=== PATIENT | female | born 1985 | race Caucasian/White ===

== ENCOUNTER → 2016-09-27 | Outpatient (CLI) | payer BC ==
[~2016-09-27] MED LIST: IBP600T1 PO; OXYC-12 PO; PREN1TAB39 PO
--- NOTE | 2016-09-27 13:12 | Diagnostic Imaging Report ---
CLINICAL INDICATION: Patient with thyroiditis. COMPARISONS: Thyroid ultrasound dated 11/09/2015. FINDINGS: THYROID NODULES: There is a 7 mm x 6 mm x 9 mm isoechoic nodule with peripheral hypoechoic rim and hyperechoic rim involving the midportion of the right thyroid gland. This nodule previously measured 9 mm x 7 mm x 6 mm and demonstrated less of a hyperechoic rim. This may represent progression of peripheral calcification. There is a 3 mm x 3 mm x 2 mm isoechoic/hypoechoic nodule within the midportion of the left kidney which is stable compared to the prior study. THYROID GLAND: Besides the thyroid nodules, the thyroid gland has normal size, shape and echogenicity. The right lobe measures 5.1 cm x 1.4 cm x 1.5 cm and the left lobe measures 4.6 cm x 1.3 cm x 1.6 cm in their three dimensions. ISTHMUS: The isthmus is unremarkable and measures 3 mm in thickness. IMPRESSION: 1: There is interval progression of increased hyperechoic border involving the right thyroid gland nodule suspected to represent progression of peripheral eggshell calcification. Otherwise this nodule is stable in size. 2: Stable 3 mm nodule in the left thyroid gland. 3: Otherwise unremarkable thyroid ultrasound exam. Dictated by: Dictated on workstation # [id number]
--- OUTSIDE RECORDS SUMMARY | 2016-09-27 13:12 | XMS REPORT | Clinical Summary ---
Author Author User, [employer] Casie Harman DO, FACP Address Unknown Phone Allergies, Adverse Reactions, Alerts Allergy Name Reaction Description Start Date Severity Status Provider MINOCYCLINE HCL rash Critical Active Casie Harman MINOCYCLINE rash Critical No Longer Active Casie Harman Conditions or Problems Problem Name Problem Code Onset Date Status Entry Date Provider Comment Standard Description Annotate LYMPHEDEMA NEC 457.1 Resolved Casie Harman Other lymphedema SINUS CONGESTION 478.1 Resolved Casie Harman Other diseases of nasal cavity and sinuses AMENORRHEA 626.0 Resolved Casie Harman Absence of menstruation INSOMNIA 780.52 Active Casie Harman Insomnia, unspecified ALLERGIC RHINITIS, SEASONAL 477.0 Resolved Casie Harman Allergic rhinitis due to pollen ACNE VULGARIS, FACIAL 706.1 Active Casie Harman Other acne ANKLE PAIN, LEFT 719.47 Active Casie Harman Pain in joint involving ankle and foot URI 465.9 Inactive Casie Harman Acute upper respiratory infections of unspecified site SINUSITIS, SPHENOIDAL, ACUTE 461.3 Inactive Casie Harman Acute sphenoidal sinusitis WEIGHT GAIN, ABNORMAL 783.1 Active Casie Harman Abnormal weight gain Medication List Medication Instructions Start Date Stop Date Generic Name NDC Status Provider Patient Instruction PHENTERMINE HCL 15 MG CAPS 1 PO BID PHENTERMINE HCL 22514856659 Active Casie Meenakshi Harman PHENTERMINE HCL 15 MG CAPS 1 PO BID PHENTERMINE HCL 65922774799 No Longer Active Casieremy Harman ALPRAZOLAM 0.5 MG TABS 1 PO Q6hrs prn ALPRAZOLAM 94228578330 No Longer Active Casie Meenakshi Harman WELLBUTRIN SR 100 MG [id number] 1 PO BID BUPROPION HCL 89519800647 No Longer Active Casie Meenakshi Harman SPIRONOLACTONE 50 MG TABS 2 PO daily SPIRONOLACTONE 42797868597 Active Casie Meenakshi Harman AUGMENTIN 500-125 MG TAB 1 PO BID AMOXICILLIN-POT CLAVULANATE 53510932331 No Longer Active Casie POLANCO'S NASAL SPRAY (DEXAMETHASONE, GENTAMICIN, SALINE) 2 puffs each nostril TID for [address] POLANCO'S NASAL SPRAY ( DEXAMETHASONE, GENTAMICIN, SALINE) No Longer Active Casie Harman FLONASE 50 MCG/DOSE INHALANT 2 puffs each nostril daily FLONASE 50 MCG/DOSE INHALANT No Longer Active Casie Harman GNP MELATONIN 3 MG TABS 1 PO QHS MELATONIN 64442797687 No Longer Active Casie Meenakshi Harman BACTRIM DS 800-160 MG TAB 1 PO daily TRIMETHOPRIM-SULFAMETHOXAZOLE 84302334919 Active Casie Meenakshi Harman SOLODYN [id number] 1 PO QHS MINOCYCLINE HCL [id number] 00935358516 No Longer Active Casieremy Harman EFFEXOR XR 37.5 MG [id number]-ZLO 1 PO daily VENLAFAXINE HCL 77778793300 No Longer Active Elizabeth Bautista CELEXA 20 MG TABS 1 PO daily CITALOPRAM HYDROBROMIDE 86607417448 No Longer Active Casie Harman PREDNISONE 20 MG TAB 2 pills at once for 2 days then 1 pill daily for 2 days PREDNISONE 00849825551 No Longer Active Casie Harman ACZONE 5 % GEL apply to affected areas [place] 11359073734 Active Casie Meenakshi Harman CHER 180 MG TABS 1 PO QD FEXOFENADINE HCL 62884279831 No Longer Active Casieremy Harman FLONASE 50 MCG/DOSE INHALANT 2 puffs each nostril daily FLONASE 50 MCG/DOSE INHALANT 78730086386 No Longer Active Casie Harman HYDROCHLOROTHIAZIDE 25 MG TAB 1 PO QD HYDROCHLOROTHIAZIDE 14553163902 No Longer Active Casie Harman Vital Signs Date Name Value Unit Range Description blood pressure, diastolic - 8462-4 84 mm[Hg] BP [place] blood pressure, systolic - 8480-6 122 mm[Hg] BP sys pulse rate E&M - 8867-4 100 /min Heart rate respiratory rate E&M - 9279-1 14 /min Resp rate temperature E&M 98.6 [degF] Body temperature weight E&M - 3141-9 198 [lb_av] Weight Measured blood pressure, diastolic - 8462-4 72 mm[Hg] BP [place] blood pressure, systolic - 8480-6 113 mm[Hg] BP sys pulse rate E&M - 8867-4 80 /min Heart rate respiratory rate E&M - 9279-1 14 /min Resp rate temperature E&M 98.6 [degF] Body temperature weight E&M - 3141-9 235 [lb_av] Weight Measured blood pressure, diastolic - 8462-4 75 mm[Hg] BP [place] blood pressure, systolic - 8480-6 130 mm[Hg] BP sys pulse rate E&M - 8867-4 80 /min Heart rate respiratory rate E&M - 9279-1 14 /min Resp rate temperature E&M 98.6 [degF] Body temperature weight E&M - 3141-9 196 [lb_av] Weight Measured blood pressure, diastolic - 8462-4 84 mm[Hg] BP [place] blood pressure, systolic - 8480-6 136 mm[Hg] BP sys pulse rate E&M - 8867-4 80 /min Heart rate respiratory rate E&M - 9279-1 12 /min Resp rate weight E&M - 3141-9 196 [lb_av] Weight Measured Diagnostic Results Date Name Value Unit Range Description Clinical Lists Update: CBC,CMP,FLP,TSH,Free T4,HgA1c,Ferritin - Chemistry Estimated Glomerular Filtration Rate (calc) 56 mL/min/1.73m2 glucose, plasma fasting 91 mg/dL albumin, serum 4.2 g/dL alkaline phosphatase, serum 54 U/L urea nitrogen, blood 13 mg/dL calcium, serum 9.1 mg/dL chloride, serum 105 mmol/L carbon dioxide, venous blood 25.0 mmol/L anion gap, serum 10 sodium, serum 136 mmol/L bilirubin, serum, total 0.5 mg/dL alanine aminotransferase (SGPT), serum 14 U/L aspartate aminotransferase (SGOT), serum 17 U/L protein, total, serum 6.3 g/dL potassium, serum 4.1 mmol/L thyroid stimulating hormone, serum 2.03 u[iU]/mL hemoglobin A1C, blood, as % of total hemoglobin 5.0 % thyroxine, serum, free 0.74 ng/dL ferritin, serum 18.4 ng/mL creatinine, serum 1.2 mg/dL Clinical Lists Update: CBC,CMP,FLP,TSH,Free T4,HgA1c,Ferritin - Hematology hemoglobin, blood 12.8 g/dL platelet count 248 10*3/mm3 erythrocyte (RBC) count 4.06 10*6/mm3 leukocyte count, blood 5.2 10*3/mm3 mean corpuscular volume, RBC 97 fL red blood cell distribution width 13.3 % hematocrit, blood 40 % Encounters Code Encounter Date Provider Facility CPT-98472 Ofc Vst, Est Level III 15:56:02 CDT Casieremy Harman DO, FACP CPT-78435 Ofc Vst, Est Level III 17:13:33 CDT Casieremy Harman DO, FACP CPT-62932 Ofc Vst, Est Level IV 17:39:31 CDT Casieremy Harman DO, FACP CPT-92374 Ofc Vst, Est Level IV 17:05:44 CDT Casie Harman DO, FACP CPT-40677 Ofc Vst, Est Level III 19:47:32 [employer] Casie Harman DO, FACP CPT-44593 Ofc Vst, Est Level III 13:04:49 [employer] Casie Harman DO, FACP CPT-54993 Ofc Vst, Est Level III 14:19:09 CDT Casie Harman, DO, FACP CPT-73303 Ofc Vst, Est Level III 14:34:54 CDT Casie Harman DO, FACP CPT-54418 Ofc Vst, Est Level III 13:14:41 [employer]PER[employer] Casie Harman DO, FACP CPT-76318 Ofc Vst, Est Level III 11:00:00 CDT Casie Harman DO, FACP CPT-57818 Ofc Vst, Est Level III 11:47:56 CDT Casieremy Harman DO, FACP CPT-96428 Ofc Vst, Est Level II 13:26:49 CDT Casieremy Harman DO, FACP CPT-23702 Ofc Vst, New Level III 14:53:05 CDT Casie Harman DO, FACP CPT-15800 Ofc Vst, New Level III 13:13:20 [employer]PER[employer] Casie Harman DO, FACP
== END ==
LOC: RAD 08:05
PROVIDERS: ATTEND Internal Medicine
DX: E06.9 Thyroiditis, unspecified (principal)
CPT/HCPCS: 76536

== ENCOUNTER → 2016-10-18 | Outpatient (CLI) | payer BC ==
--- NOTE | 2016-10-19 14:48 | Diagnostic Imaging Report ---
I123 THYROID UPTAKE SCAN Technique: Multi-projectional scintigraphic imaging of the thyroid was performed after the oral administration of 191 ?Ci of I-123. A 4 hour and 24-hour thyroid uptake was performed. Indication: Thyroid nodule. Comparison: Thyroid ultrasound of 09/27/2016. Findings: There is homogeneous uptake of radiopharmaceutical throughout the thyroid. No photopenic or foci of increased radiopharmaceutical activity. Specifically, no evidence of hyperfunctioning adenoma. No findings of ectopic thyroid tissue. The 4-hour thyroid uptake is 16.2% in the 24-hour uptake is 42.4%, both of which are slightly elevated. Impression: 1. No evidence of hyperfunctioning adenoma. 2. Mildly elevated thyroid uptake at 4 hours and 24 hours. This can be seen with hyperthyroidism, and correlation with TSH levels is advised. Dictated by: Dictated on workstation # [id number]
== END ==
LOC: CARD 11:55
PROVIDERS: ATTEND Internal Medicine
DX: E04.1 Nontoxic single thyroid nodule (principal)
CPT/HCPCS: 78014

== ENCOUNTER → 2016-11-18 | Outpatient (CLI) | payer BC ==
[~2016-11-18] VITALS: Ht 177.8 cm; Wt 81.6 kg
[2016-11-18 10:38] VITALS: BP 124/68
[2016-11-18 10:52] VITALS: BP 124/68
--- NOTE | 2016-11-18 11:23 | Progress Note-Pre Operative ---
Pre-Operative Progress Note H&P Reviewed The H&P was reviewed, patient examined and no changes noted. Date H&P Reviewed: Nov 18, 2016 Time H&P Reviewed: 10:20 Pre-Operative Diagnosis: Right Thyroid Nodule NIKOLAS POLANCO MD Nov 18, 2016 11:22 am
--- NOTE | 2016-11-18 11:24 | Progress Note-Post Operative ---
Post-Operative Progess Note Surgeon (s)/[employer] (s) Surgeon NIKOLAS POLANCO MD [employer]: n/a Pre-Operative Diagnosis Right Thyroid Nodule Post-Operative Diagnosis n/a Post-Op Procedure Note Date of Procedure: Nov 18, 2016 Name of Procedure Performed: US Guided FNA of Right Thyriod Nodule Description of the Procedure: n/a Findings of the Procedure n/a Anesthesia Type local Estimated blood loss (mL): minimal Specimen(s) collected/removed slides and cytology to pathology NIKOLAS POLANCO MD Nov 18, 2016 11:23 am
--- NOTE | 2016-11-21 08:07 | Diagnostic Imaging Report ---
EXAMINATION: Dedicated thyroid ultrasound performed with ultrasound guidance provided for FNA performed by Dr. Kowalski. Indication: Thyroid nodule FINDINGS: Ultrasound images demonstrate a solid right thyroid nodule. IMPRESSION: Ultrasound guidance provided for right thyroid nodule FNA. Dictated by: Dictated on workstation # [id number]
== END ==
LOC: RAD 10:12
PROVIDERS: ATTEND Otolaryngology Otolaryngology/Facial Plastic Surgery
DX: E04.1 Nontoxic single thyroid nodule (principal)
CPT/HCPCS: 76942; 88305

== ENCOUNTER → 2018-02-16 | Outpatient (CLI) | payer BC ==
--- NOTE | 2018-02-16 09:02 | Diagnostic Imaging Report ---
PROCEDURE: US Thyroid. TECHNIQUE: Multiple real-time grayscale images were obtained of the thyroid in various projections. INDICATION: Thyroid nodules, followup. Comparison is made to prior thyroid ultrasound from 09/27/2016. The right lobe of the thyroid measures 5.0 x 1.4 x 1.5 cm and the left lobe measures 4.6 x 1.3 x 1.6 cm. Hypoechoic nodule with peripheral hyperechogenicity in the right lobe is again noted measuring 7 mm x 6 cm x 5 mm. Tiny 3 mm nodule left lobe is also seen and stable. No dominant mass is detected. IMPRESSION: Stable thyroid ultrasound and thyroid nodules when compared with prior exam from 09/27/2016. Dictated by: Dictated on workstation # [id number]
== END ==
LOC: RAD 08:01
PROVIDERS: ATTEND Otolaryngology Otolaryngology/Facial Plastic Surgery
DX: E04.2 Nontoxic multinodular goiter (principal)
CPT/HCPCS: 76536

== ENCOUNTER 2021-09-19 13:10 | Inpatient (IN) | payer BC ==
[~2021-09-19] VITALS: Ht 170.2 cm; Wt 130.5 kg
[2021-09-19 13:57] LABS: BASOPHILS # (AUTO) 0.1 10^3/uL (0.0-0.1); BASOPHILS % (AUTO) 1 % (0-10); EOSINOPHILS # (AUTO) 0.1 10^3/uL (0.0-0.3); EOSINOPHILS % (AUTO) 1 % (0-10); HEMATOCRIT 44 % (35-52); HEMOGLOBIN 14.5 g/dL (11.5-16.0); LYMPHOCYTES # (AUTO) 2.5 10^3/uL (1.0-4.0); LYMPHOCYTES % (AUTO) 22 % (12-44); MEAN CORPUSCULAR HEMOGLOBIN 31 pg (25-34); MEAN CORPUSCULAR HGB CONC 33 g/dL (32-36); MEAN CORPUSCULAR VOLUME 94 fL (80-99); MEAN PLATELET VOLUME 10.3 fL (9.0-12.2); MONOCYTES # (AUTO) 0.6 10^3/uL (0.0-1.0); MONOCYTES % (AUTO) 6 % (0-12); NEUTROPHILS # (AUTO) 7.8 10^3/uL (1.8-7.8); NEUTROPHILS % (AUTO) 70 % (42-75); PLATELET COUNT 358 10^3/uL (130-400); WHITE BLOOD COUNT 11.1 10^3/uL (4.3-11.0)
[2021-09-19 14:05] LABS: ALBUMIN 4.1 GM/DL (3.2-4.5)
[2021-09-19 14:06] LABS: POTASSIUM 4.1 MMOL/L (3.6-5.0)
[2021-09-19 14:07] LABS: CALCIUM 9.6 MG/DL (8.5-10.1)
[2021-09-19 14:08] LABS: TOTAL PROTEIN 7.6 GM/DL (6.4-8.2)
[2021-09-19 14:10] LABS: BILIRUBIN,TOTAL 0.4 MG/DL (0.1-1.0)
[2021-09-19 14:12] LABS: CREATININE SERUM 0.91 MG/DL (0.60-1.30)
[2021-09-19] MEDS ORDERED: IOHEXOL 350 MG/ML 100 ML (OMNIPAQUE 350) VIAL IV ONE (14:45)
[2021-09-19] MEDS ORDERED: NS 100 ML (IVPB) BAG IV ONE (14:45)
[2021-09-19] MEDS ORDERED: HOLD METFORMIN - RECEIVED CONTRAST 20 ML VIAL IV SCH (14:45)
[2021-09-19] MEDS ORDERED: HEParin DRIP 25000 UNIT/500ML 500 ML IV ONE (16:00)
[2021-09-19] MEDS ORDERED: HEParin 1000 UNIT/ML (10ML VIAL) FOR BOLUS IV ONE (16:00)
--- NOTE | 2021-09-19 16:21 | Diagnostic Imaging Report ---
PROCEDURE: CT angiography of the chest with contrast. TECHNIQUE: Multiple contiguous axial images were obtained through the chest after uneventful bolus administration of intravenous contrast. 3D reconstructed CTA MIP acquisitions were also performed. Auto Exposure Controls were utilized during the CT exam to meet ALARA standards for radiation dose reduction. INDICATION: Trouble breathing, dyspnea COMPARISON: None available FINDINGS: No significant adenopathy within the chest. No aneurysmal dilatation of the thoracic aorta. The heart is within normal limits in size. No significant pericardial effusion. The right ventricle to left ventricle ratio is greater than 1 and there is slight flattening of the interventricular septum. No pleural effusion. No pneumothorax. Minimal groundglass and reticular opacities within the peripheral right lower lobe inferiorly. The lungs otherwise appear clear. A large saddle pulmonary embolus is identified with additional emboli identified within the bilateral pulmonary arteries. Filling defects are identified within segmental and subsegmental pulmonary arteries of all 5 lobes bilaterally. The minimally visualized upper abdomen is unremarkable. No acute osseous abnormality. IMPRESSION: Extensive bilateral pulmonary emboli throughout all 5 lobes including large saddle pulmonary embolus extending to the bilateral pulmonary arteries. This is associated with findings concerning for developing right heart strain. Minimal groundglass opacities within the right lower lobe, which may simply relate to atelectasis, though minimal developing pulmonary infarction not excluded. Findings discussed with Avelina Bowen in the Emergency Department at 1600 on 09/19/2021. Dictated by: Dictated on workstation # [id number]
[2021-09-19 17:00] LABS: PROTHROMBIN TIME PATIENT 13.7 SEC (12.2-14.7)
--- NOTE | 2021-09-19 17:44 | ED General ---
General Chief Complaint: Respiratory Problems Stated Complaint: POSSIBLE BLOOD CLOT, SOB, LOW O2, HIGH HEART RATE Nursing Triage Note: PT AMB TO RM 10 W PERSONAL CRUTCHES. PT REPORTS SHE HAD RIGHT ANKLE SURGERY ON MONDAY FOR BROKEN ANKLE (1 PLATE 5 SCREWS). PT ADVISED TO GO TO ED PER [facility] D/T POST OP BLOOD CLOT CONCERN. PT C/O SOA SX MONDAY, DENIES PAIN. A&OX4. Source of Information: Patient Exam Limitations: No Limitations History of Present Illness Date Seen by Provider: Sep 19, 2021 Time Seen by Provider: 13:22 Initial Comments This 36-year-old young lady presents to the emergency room as a referral from the [facility] walk-in clinic where she was found to have tachycardia up to 160 that appeared sinus as well as shortness of breath and oxygen saturations around 92% on room air. She was suffering probe significant dyspnea on exertion. She is recovering from recent ankle surgery and plating to treat ankle fracture on the right. Her surgeon is Dr. Topete. Surgery was on September 14. She started noticing shortness of breath with activities of daily living on September 16. She does not smoke. She denies cough or fever. She does not take any hormone therapies. She denies as she has an IUD. Oxygen saturation is 90% on 1 L nasal cannula during assessment. She describes having some proximal calf pain the day after surgery. Allergies and Home Medications Allergies Coded Allergies: No Known Drug Allergies (Verified Allergy, Unknown, 07/14/08) Patient Home Medication List Home Medication List Reviewed: Yes Ibuprofen (Motrin) 600 Mg Tab, 600 MG PO Q6HR PRN, (Reported) Entered as Reported by: SALEEM KWAN on 05/06/10 1221 Oxycodone Hcl/Acetaminophen (Percocet 5-325 Mg Tablet) 1 Each Tablet, 1-2 EACH PO Q4-6 HOURS PRN, (Reported) Entered as Reported by: SALEEM KWAN on 05/06/10 1221 Vits W-Ca,Fe,Fa(<1MG) () 1 Each Tablet, 1 EACH PO DAILY, (Reported) Entered as Reported by: SALEEM KWAN on 05/06/10 1224 Review of Systems Review of Systems Constitutional: no symptoms reported EENTM: no symptoms reported Respiratory: see HPI Cardiovascular: no symptoms reported Gastrointestinal: no symptoms reported Genitourinary: no symptoms reported Musculoskeletal: see HPI Skin: no symptoms reported Psychiatric/Neurological: No Symptoms Reported Hematologic/Lymphatic: No Symptoms Reported Past Ghgywfk-Szzibb-Jescmo Hx Patient Social History Tobacco Use?: No Use of E-Cig and/or Vaping dev: No Substance use?: No Alcohol Use?: No Immunizations Up To Date Influenza Vaccine Up-to-Date: Yes; Up-to-Date First/Initial COVID19 Vaccinat: 2020 Second COVID19 Vaccination Kg: 2020 Third COVID19 Vaccination Date: 2020 COVID19 Vaccine [employer]: [employer] Past Medical History Surgery/Hospitalization HX: HX RIGHT ANKLE SURGERY X5 SCREWS, 1 PLATE Surgeries: Yes Orthopedic (Knee, ankle) Respiratory: No Cardiac: No Neurological: No Reproductive Disorders: No Genitourinary: No Gastrointestinal: No Musculoskeletal: Yes (Right ankle fracture with surgery and plating) Endocrine: No HEENT: No Cancer: No Psychosocial: No Physical Exam Vital Signs Vital Signs - First Documented 09/19/21 13:28 Temp 36.2 Pulse 156 Resp 26 B/P (MAP) 142/98 (113) Pulse Ox 97 O2 Delivery Nasal Cannula O2 Flow Rate 1.00 Capillary Refill : Less Than 3 Seconds Height, Weight, BMI Height: 5'10.00" Weight: 180lbs. 0.0oz. 81.508247zx; 45.00 BMI Method: General Appearance: WD/WN, Mild Distress (Dyspnea on exertion), Obese HEENT: PERRL/EOMI, Normal ENT Inspection Neck: Normal Inspection; No JVD Respiratory: Lungs Clear, Normal Breath Sounds, No Accessory Muscle Use, No Respiratory Distress Cardiovascular: No Edema, No Murmur, Tachycardia (Regular) Extremity: No Pedal Edema, Other (Right foot remains in boot) Neurologic/Psychiatric: Alert, Oriented x3, Normal Mood/Affect Skin: Normal Color, Warm/Dry Progress/Results/Core Measures Suspected Sepsis SIRS Temperature: Pulse: 156 Respiratory Rate: 26 Laboratory Tests 09/19/21 13:40: White Blood Count 11.1H Blood Pressure 142 /98 Mean: 113 Laboratory Tests 09/19/21 13:40: Creatinine 0.91, INR Comment 1.0, Platelet Count 358, Total Bilirubin 0.4 Results/Orders Lab Results Laboratory Tests Test 09/19/21 13:40 09/19/21 13:48 Range/Units White Blood Count 11.1 H 4.3-11.0 10^3/uL Red Blood Count 4.64 3.80-5.11 10^6/uL Hemoglobin 14.5 11.5-16.0 g/dL Hematocrit 44 35-52 % Mean Corpuscular Volume 94 80-99 fL Mean Corpuscular Hemoglobin 31 25-34 pg Mean Corpuscular Hemoglobin Concent 33 32-36 g/dL Red Cell Distribution Width 12.5 10.0-14.5 % Platelet Count 358 130-400 10^3/uL Mean Platelet Volume 10.3 9.0-12.2 fL Immature Granulocyte % (Auto) 1 % Neutrophils (%) (Auto) 70 42-75 % Lymphocytes (%) (Auto) 22 12-44 % Monocytes (%) (Auto) 6 0-12 % Eosinophils (%) (Auto) 1 0-10 % Basophils (%) (Auto) 1 0-10 % Neutrophils # (Auto) 7.8 1.8-7.8 10^3/uL Lymphocytes # (Auto) 2.5 1.0-4.0 10^3/uL Monocytes # (Auto) 0.6 0.0-1.0 10^3/uL Eosinophils # (Auto) 0.1 0.0-0.3 10^3/uL Basophils # (Auto) 0.1 0.0-0.1 10^3/uL Immature Granulocyte # (Auto) 0.1 0.0-0.1 10^3/uL Prothrombin Time 13.7 12.2-14.7 SEC INR Comment 1.0 0.8-1.4 Activated Partial Thromboplast Time 36 H 24-35 SEC Sodium Level 137 135-145 MMOL/L Potassium Level 4.1 3.6-5.0 MMOL/L Chloride Level 104 98-107 MMOL/L Carbon Dioxide Level 19 L 21-32 MMOL/L Anion Gap 14 5-14 MMOL/L Blood Urea Nitrogen 11 7-18 MG/DL Creatinine 0.91 0.60-1.30 MG/DL Estimat Glomerular Filtration Rate 83 BUN/Creatinine Ratio 12 Glucose Level 115 H 70-105 MG/DL Calcium Level 9.6 8.5-10.1 MG/DL Corrected Calcium 9.5 8.5-10.1 MG/DL Total Bilirubin 0.4 0.1-1.0 MG/DL Aspartate Amino Transf (AST/SGOT) 36 H 5-34 U/L Alanine Aminotransferase (ALT/SGPT) 45 0-55 U/L Alkaline Phosphatase 83 40-136 U/L C-Reactive Protein High Sensitivity 3.51 H 0.00-0.50 MG/DL Total Protein 7.6 6.4-8.2 GM/DL Albumin 4.1 3.2-4.5 GM/DL Serum Test, Qualitative NEGATIVE NEGATIVE Influenza Type A (RT-PCR) Not Detected Not Detecte Influenza Type B (RT-PCR) Not Detected Not Detecte SARS-CoV-2 RNA (RT-PCR) Not Detected Not Detecte My Orders Orders - SHABBIR JENKINS MD Cbc With Automated Diff (09/19/21 13:22) Comprehensive Metabolic Panel (09/19/21 13:22) Hs C Reactive Protein (09/19/21 13:22) Hcg,Qualitative Serum (09/19/21 13:22) Ed Iv/Invasive Line Start (09/19/21 13:22) Covid 19 Inhouse Test (09/19/21 13:43) Influenza A And B By Pcr (09/19/21 13:43) Ct Angio Chest W (09/19/21 14:35) Iohexol Injection (Omnipaque 350 Mg/Ml 1 (09/19/21 14:45) Received Contrast (Hold Metformin- Contr (09/19/21 14:45) Ns (Ivpb) (Sodium Chloride 0.9% Ivpb Bag (09/19/21 14:45) Heparin Drip 25453 Unit/500ml (Heparin (09/19/21 16:00) Heparin (Bolus Per Protocol) (Heparin (B (09/19/21 16:00) Echo W Doppler/Color Flow (09/19/21 15:49) Protime With Inr (09/19/21 16:49) Partial Thromboplastin Time (09/19/21 16:49) Ed Admission (Communication) (09/19/21 17:37) Medications Given in ED Current Medications Medications Dose Ordered Sig/Renee Route Start Time Stop Time Status Last Admin Dose Admin Heparin Sodium (Porcine) HEPARIN FULL PROTOC... ONCE ONCE IV 09/19/21 16:00 09/19/21 16:01 DC 09/19/21 16:47 5,000 UNIT Heparin Sodium/ Dextrose 500 ml @ 0 mls/hr Q0M ONCE IV 09/19/21 16:00 09/19/21 16:01 DC 09/19/21 16:54 24 MLS/HR Iohexol 100 ml ONCE ONCE IV 09/19/21 14:45 09/19/21 14:46 DC 09/19/21 15:35 88 ML Sodium Chloride 100 ml ONCE ONCE IV 09/19/21 14:45 09/19/21 14:46 DC 09/19/21 15:35 80 ML Vital Signs/I&O 09/19/21 13:28 Temp 36.2 Pulse 156 Resp 26 B/P (MAP) 142/98 (113) Pulse Ox 97 O2 Delivery Nasal Cannula O2 Flow Rate 1.00 Capillary Refill : Less Than 3 Seconds Blood Pressure Mean: 113 Progress Note : Progress Note Patient was stable on low-flow nasal cannula. CT angiogram was obtained after reviewing labs and revealed a large saddle pulmonary embolus with right heart strain. I discussed the case with Dr. Beck with eICU at 1548. Because patient is hemodynamically stable and requiring only low-flow oxygen, thrombolytics or endovascular interventions were not recommended. We started her on a full heparin drip protocol with bolus. Echocardiogram was obtained and reviewed by Dr. Hector. There were no additional concerns based on the echocardiogram. Pulmonary artery pressure was 40. He agrees with admission to the ICU and heparin drip. Patient wishes to be full CODE STATUS. Dr. Beck was updated after the echo. Admission was discussed with Dr. Kowalski who provided admission orders. Diagnostic Imaging Diagonstic Imaging: CT Plain Films/CT/US/NM/MRI: chest Comments CT angiogram chest viewed by me and report reviewed. See report below: NAME: WALLACE RAMON MED REC#: [id number] PT STATUS: REG ER : 1985 PHYSICIAN: SHABBIR JENKINS MD ADMIT DATE: 09/19/21/ER Draft Date of Exam:09/19/21 CT ANGIO CHEST W PROCEDURE: CT angiography of the chest with contrast. TECHNIQUE: Multiple contiguous axial images were obtained through the chest after uneventful bolus administration of intravenous contrast. 3D reconstructed CTA MIP acquisitions were also performed. Auto Exposure Controls were utilized during the CT exam to meet ALARA standards for radiation dose reduction. INDICATION: Trouble breathing, dyspnea COMPARISON: None available FINDINGS: No significant adenopathy within the chest. No aneurysmal dilatation of the thoracic aorta. The heart is within normal limits in size. No significant pericardial effusion. The right ventricle to left ventricle ratio is greater than 1 and there is slight flattening of the interventricular septum. No pleural effusion. No pneumothorax. Minimal groundglass and reticular opacities within the peripheral right lower lobe inferiorly. The lungs otherwise appear clear. A large saddle pulmonary embolus is identified with additional emboli identified within the bilateral pulmonary arteries. Filling defects are identified within segmental and subsegmental pulmonary arteries of all 5 lobes bilaterally. The minimally visualized upper abdomen is unremarkable. No acute osseous abnormality. IMPRESSION: Extensive bilateral pulmonary emboli throughout all 5 lobes including large saddle pulmonary embolus extending to the bilateral pulmonary arteries. This is associated with findings concerning for developing right heart strain. Minimal groundglass opacities within the right lower lobe, which may simply relate to atelectasis, though minimal developing pulmonary infarction not excluded. Findings discussed with Avelina Bowen in the Emergency Department at 1600 on 09/19/2021. Dictated on workstation # [id number] Dict: 09/19/21 1555 Trans: 09/19/21 1619 JEREMIE [id number] Interpreted by: SERGEY BLACKMON MD Departure Communication (Admissions) Time/Spoke to Admitting Phy: 17:35 Dr. Kowalski Impression Primary Impression: Pulmonary embolism Qualified Codes: I26.02 - Saddle embolus of pulmonary artery with acute cor pulmonale Additional Impression: Hypoxia Disposition: 09 ADMITTED INPATIENT Condition: Stable Admissions Decision to Admit Reason: Admit from ER (General) Decision to Admit/Date: Sep 19, 2021 Time/Decision to Admit Time: 13:30 Departure-Patient Inst. Referrals: KATIA KOWALSKI DO (PCP/Family) Primary Care Physician SHABBIR JENKINS MD Sep 19, 2021 17:44
--- NOTE | 2021-09-19 18:28 | Tele-ICU Consult ---
Progress Note 36 y/o female with recent ankle surgery presents to ED with SOB and tachycardia CT angio of chest shows large sadle pulmonary embolus. Hemodynamically normal except for tachycardia Echo performed Heparin drip started PLAN: ICU admission for heparin drip and monitoring Consider tPa or IR intervention if hemodynamics change Focused Exam Height, Weight, BMI Height: 5'10.00" Weight: 180lbs. 0.0oz. 81.726343zv; 45.00 BMI Method: Results Labs Labs Laboratory Tests 09/19/21 13:40: White Blood Count 11.1H, Red Blood Count 4.64, Hemoglobin 14.5, Hematocrit 44, Mean Corpuscular Volume 94, Mean Corpuscular Hemoglobin 31, Mean Corpuscular Hemoglobin Concent 33, Red Cell Distribution Width 12.5, Platelet Count 358, Mean Platelet Volume 10.3, Immature Granulocyte % (Auto) 1, Neutrophils (%) (Auto) 70, Lymphocytes (%) (Auto) 22, Monocytes (%) (Auto) 6, Eosinophils (%) (Auto) 1, Basophils (%) (Auto) 1, Neutrophils # (Auto) 7.8, Lymphocytes # (Auto) 2.5, Monocytes # (Auto) 0.6, Eosinophils # (Auto) 0.1, Basophils # (Auto) 0.1, Immature Granulocyte # (Auto) 0.1, Prothrombin Time 13.7, INR Comment 1.0, Activated Partial Thromboplast Time 36H, Sodium Level 137, Potassium Level 4.1, Chloride Level 104, Carbon Dioxide Level 19L, Anion Gap 14, Blood Urea Nitrogen 11, Creatinine 0.91, Estimat Glomerular Filtration Rate 83, BUN/Creatinine Ratio 12, Glucose Level 115H, Calcium Level 9.6, Corrected Calcium 9.5, Total Bilirubin 0.4, Aspartate Amino Transf (AST/SGOT) 36H, Alanine Aminotransferase (ALT/SGPT) 45, Alkaline Phosphatase 83, C-Reactive Protein High Sensitivity 3.51 H, Total Protein 7.6, Albumin 4.1, Serum Test, Qualitative NEGATIVE 09/19/21 13:48: Influenza Type A (RT-PCR) Not Detected, Influenza Type B (RT-PCR) Not Detected, SARS-CoV-2 RNA (RT-PCR) Not Detected CHASITY LAUREN MD Sep 19, 2021 18:28
[2021-09-19] MEDS ORDERED: diphenhydrAMINE 50 MG/ML INJ (BENADRYL) IVP PRN (20:30)
[2021-09-19] MEDS ORDERED: CALCIUM CARBONATE 500 MG (TUMS) TAB.CHEW PO PRN (20:30)
[2021-09-19] MEDS ORDERED: meTOprolol TARTRATE 25 MG (LOPRESSOR) TABLET PO PRN (20:30)
[2021-09-19] MEDS ORDERED: ONDANSETRON 4 MG (ZOFRAN) ORAL DISSOLVE TAB PO PRN (20:30)
[2021-09-19] MEDS ORDERED: morphine INJ 4 MG/ML 1 ML (VIAL/SYRINGE) IV PRN (20:30)
[2021-09-19] MEDS ORDERED: MILK OF MAGNESIA 400 MG/5 ML 30 ML UDC PO PRN (20:30)
[2021-09-19] MEDS ORDERED: diphenhydrAMINE 25 MG TAB (BENADRYL) PO PRN (20:30)
[2021-09-19] MEDS ORDERED: BISACODYL 10 MG SUPP (DULCOLAX) PR PRN (20:30)
[2021-09-19] MEDS ORDERED: MELATONIN 3 MG TABLET PO PRN (20:30)
[2021-09-19] MEDS ORDERED: polyethylene glycoL POWDER 17 GM (MIRALAX) PACK PO PRN (20:30)
[2021-09-19] MEDS ORDERED: LACTULOSE SYRUP 10GM/15ML (ENULOSE) 30ML UDC PO PRN (20:30)
[2021-09-19] MEDS ORDERED: ALPRAZolam 0.25 MG (XANAX) TAB PO PRN ×2 (20:30→22:45)
[2021-09-19] MEDS ORDERED: HEParin 1000 UNIT/ML (10ML VIAL) FOR BOLUS IV SCH (20:30)
[2021-09-19] MEDS ORDERED: ANTACID SUSP 30 ML UDC (MYLANTA) PO PRN (20:30)
[2021-09-19] MEDS ORDERED: ONDANSETRON 4 MG/2 ML (SDV) Z0FRAN IV PRN (20:30)
[2021-09-19 20:45] VITALS: BP 142/98
[2021-09-19] MEDS ORDERED: RT-ALBUTEROL/IPRATROPIUM 3 ML (DUONEB) VIAL INH PRN (21:00)
[2021-09-19] MEDS ORDERED: NS IV 1000 ML 1,000 ML ONE (21:22)
[2021-09-19] MEDS ORDERED: SENNOSIDES 8.6 MG (SENOKOT) TAB ONE (21:23)
[2021-09-19] MEDS ORDERED: DOCUSATE SODIUM 100 MG (COLACE) CAP PO ONE (21:23)
[2021-09-19] MEDS: SENNOSIDES 8.6 MG (SENOKOT) TAB PO SCH (21:25)
[2021-09-19] MEDS: NS IV 1000 ML 1,000 ML IV SCH (21:25)
[2021-09-19] MEDS: DOCUSATE SODIUM 100 MG (COLACE) CAP PO SCH (21:25)
[2021-09-19] MEDS: HEParin DRIP 25000 UNIT/500ML 500 ML IV SCH (22:51)
[2021-09-19] MEDS: HEParin 1000 UNIT/ML (10ML VIAL) FOR BOLUS IV SCH (23:44)
[2021-09-20 04:55] LABS: BASOPHILS # (AUTO) 0.1 10^3/uL (0.0-0.1); BASOPHILS % (AUTO) 1 % (0-10); EOSINOPHILS # (AUTO) 0.1 10^3/uL (0.0-0.3); EOSINOPHILS % (AUTO) 1 % (0-10); HEMATOCRIT 41 % (35-52); HEMOGLOBIN 13.3 g/dL (11.5-16.0); LYMPHOCYTES # (AUTO) 3.1 10^3/uL (1.0-4.0); LYMPHOCYTES % (AUTO) 29 % (12-44); MEAN CORPUSCULAR HEMOGLOBIN 31 pg (25-34); MEAN CORPUSCULAR HGB CONC 33 g/dL (32-36); MEAN CORPUSCULAR VOLUME 94 fL (80-99); MEAN PLATELET VOLUME 10.6 fL (9.0-12.2); MONOCYTES # (AUTO) 0.7 10^3/uL (0.0-1.0); MONOCYTES % (AUTO) 7 % (0-12); NEUTROPHILS # (AUTO) 6.6 10^3/uL (1.8-7.8); NEUTROPHILS % (AUTO) 62 % (42-75); PLATELET COUNT 342 10^3/uL (130-400); WHITE BLOOD COUNT 10.6 10^3/uL (4.3-11.0)
[2021-09-20 05:08] LABS: ALBUMIN 3.7 GM/DL (3.2-4.5); POTASSIUM 4.1 MMOL/L (3.6-5.0)
[2021-09-20 05:10] LABS: CALCIUM 9.1 MG/DL (8.5-10.1)
[2021-09-20 05:11] LABS: TOTAL PROTEIN 6.7 GM/DL (6.4-8.2)
[2021-09-20 05:13] LABS: BILIRUBIN,TOTAL 0.3 MG/DL (0.1-1.0)
[2021-09-20 05:14] LABS: PHOSPHORUS 3.5 MG/DL (2.3-4.7)
[2021-09-20 05:15] LABS: CREATININE SERUM 0.87 MG/DL (0.60-1.30)
[2021-09-20 05:18] LABS: MAGNESIUM 1.8 MG/DL (1.6-2.4)
[2021-09-20] MEDS: ACETAMINOPHEN 325 MG TABLET PO PRN ×2 (07:27→18:30)
[2021-09-20] MEDS: RT-ALBUTEROL/IPRATROPIUM 3 ML (DUONEB) VIAL INH SCH ×2 (08:58→21:08)
--- NOTE | 2021-09-20 09:04 | Diagnostic Imaging Report ---
PROCEDURE: US Venous Lower Ext Nhan. TECHNIQUE: Multiple Real-time grayscale images were obtained over the lower extremities in various projections, bilaterally. Additional duplex Doppler and color Doppler images were also obtained. INDICATION: Lower extremity surgery 1 week ago, known pulmonary embolus. FINDINGS: Right leg: There is hypoechoic occlusive acute appearing thrombus commencing at the lower third of the superficial femoral vein within the thigh extending throughout the length of the occluded popliteal and into the calf occluding the upper to mid right posterior tibial vein and peroneal. Left leg: The left lower extremity, however, show a widely patent deep and superficial venous system with normal color flow, compressibility, and waveforms. IMPRESSION: 1. Long segmental hypoechoic occlusive deep vein thrombus in the right leg commences at the lower thigh into the mid calf. 2. Negative left leg. Dictated by: Dictated on workstation # [id number]
--- NOTE | 2021-09-20 09:05 | Consultation-Cardiology ---
HPI-Cardiology Cardiology Consultation: Date of Consultation 09/20/2021 Date of Admission 09/19/2021 Attending Physician Casie Harman DO Admitting Physician Casie Harman DO Consulting Physician DANIELA ALVAREZ JR, MD HPI: Time Seen by a Provider: 09:00 Chief Complaint: Reason for consultation: Pulmonary hypertension with right heart strain. I had the pleasure of seeing Heike in the intensive care unit at [facility] in [place], [place] this morning. Her only past medical history is morbid obesity with chronic lymphedema. On Monday she had right ankle surgery as an outpatient. She required a plate and screws due to an ankle fracture which she suffered when she was walking downstairs at home and missed the last stair and twisted her ankle. Her surgery was uneventful. On Monday she felt as though there was some cramping in her right calf but she thought this was related to the surgery. She does have chronic, intermittent bilateral lower extremity edema which was actually improved since she was keeping her feet up due to the surgery. On she was able to take a shower and noticed that she was quite short of breath. Over the next couple of days, the shortness of breath continued to worsen. Yesterday she was still quite short of breath so she came to the emergency room for further evaluation. She underwent a CT angiogram of the chest which showed a saddle pulmonary embolism. She was started on intravenous heparin and admitted to the intensive care unit. She has been in bed overnight so she is not sure of her dyspnea on exertion is any different. She denies chest pain, paroxysmal nocturnal dyspnea, TopCare, palpitations, lightheadedness, or syncope. Certain portions of this document may have been dictated utilizing voice recognition technology. Inherent to this technology, typographical and grammatical errors may exist. As much as I am diligent to identify and correct these mistakes, some errors may remain in the document. Review of Systems-Cardiology Review of Systems Other comments Review of 10 organ systems is as per the history of present illness, otherwise negative. MDY-Gzoegk-Nhxagv Hx Patient Social History Smoking Status: Never a Smoker Have you traveled recently?: No Alcohol Use?: Yes Pt feels they are or have been: No Past Medical History PMH As described under Assessment. Family Medical History Family Medical History: She is not aware of any family history of hypercoagulable states. Her mother was in the room and also verifies this information. Allergies and Home Medications Allergies Coded Allergies: No Known Drug Allergies (Verified , 07/14/08) Patient Home Medication List Home Medication List Reviewed: Yes Aspirin (Aspirin EC) 325 Mg Tablet.dr, 325 MG PO DAILY, (Reported) Entered as Reported by: STEPHAN GREER on 09/20/211010 Last Action: Reviewed Dapsone (Dapsone) 60 Gm Gel..gram., 1 APPLIC TOP UD PRN for ACNE, (Reported) Entered as Reported by: STEPHAN GREER on 09/20/211010 Last Action: Reviewed Ibuprofen (Ibuprofen) 200 Mg Tablet, 600 MG PO Q8H PRN for PAIN-MILD (1-4), (Reported) Entered as Reported by: STEPHAN GREER on 09/20/211010 Last Action: Reviewed Loratadine (Loratadine) 10 Mg Tablet, 10 MG PO HS, (Reported) Entered as Reported by: STEPHAN GREER on 09/20/211010 Last Action: Reviewed Multivitamin/Iron/Folic Acid (Centrum Women Tablet) 1 Each Tablet, 1 EACH PO DAILY, (Reported) Entered as Reported by: STEPHAN GREER on 09/20/211010 Last Action: Reviewed Oxycodone HCl/Acetaminophen (Oxycodone-Acetaminophen 5-325) 1 Each Tablet, 1 EA PO Q4H PRN for PAIN-MODERATE (5-7), (Reported) Entered as Reported by: STEPHAN GREER on 09/20/211010 Last Action: Reviewed Spironolactone (Spironolactone) 50 Mg Tablet, 150 MG PO DAILY, (Reported) Entered as Reported by: STEPHAN GREER on 09/20/211010 Last Action: Reviewed Discontinued Medications Ibuprofen (Motrin) 600 Mg Tab, 600 MG PO Q6HR PRN, (Reported) Discontinued Reason: No Longer Taking Entered as Reported by: SALEEM KWAN on 05/06/101 Last Action: Discontinued Oxycodone Hcl/Acetaminophen (Percocet 5-325 Mg Tablet) 1 Each Tablet, 1-2 EACH PO Q4-6 HOURS PRN, (Reported) Discontinued Reason: No Longer Taking Entered as Reported by: SALEEM KWAN on 9/30/10 1221 Last Action: Discontinued Vits W-Ca,Fe,Fa(<1MG) () 1 Each Tablet, 1 EACH PO DAILY, (Reported) Discontinued Reason: No Longer Taking Entered as Reported by: SALEEM KWAN on 05/06/10 1224 Last Action: Discontinued Exam Vital Signs Vital Signs Date Time Temp Pulse Resp B/P (MAP) Pulse Ox O2 Delivery O2 Flow Rate FiO2 09/20/21 14:00 121 30 111/105 99 Nasal Cannula 1.00 09/20/21 04:00 37.0 09/19/21 20:45 24 Physical Exam General: Alert. No acute distress. Well nourished and appears stated age. She is morbidly obese. Eye: Extraocular movements are intact. Conjunctivae are clear. There are no xanthelasma. HENT: Normocephalic. Atraumatic. Carotid pulsations 2/2 without bruits. Neck: Jugular venous pressure does not appear elevated. No thyromegaly appreciated. Respiratory: Lungs are clear to auscultation. Respirations are non-labored. Breath sounds are equal. Symmetrical chest wall expansion. Cardiovascular: Normal rate. Regular rhythm. No murmur. No gallop. Point of maximal impulse is not appear displaced. Good pulses equal in all extremities. No edema. Gastrointestinal: Soft. Normal bowel sounds. Skin: Skin turgor is normal. There is no pallor. Musculoskeletal: No kyphosis or scoliosis appreciated. Neurologic: Alert and oriented to person, place, time. Cranial nerves 3-12 appear grossly intact. The patient has good motor tone strength in the upper and lower extremities bilaterally. Psychiatric: Cooperative. Appropriate mood & affect. Labs Laboratory Tests Test 09/19/21 23:07 09/20/21 04:30 09/20/21 10:48 09/20/21 14:31 Range/Units Activated Partial Thromboplast Time 62 H 132 *H 66 H 158 *H 24-35 SEC White Blood Count 10.6 4.3-11.0 10^3/uL Red Blood Count 4.34 3.80-5.11 10^6/uL Hemoglobin 13.3 11.5-16.0 g/dL Hematocrit 41 35-52 % Mean Corpuscular Volume 94 80-99 fL Mean Corpuscular Hemoglobin 31 25-34 pg Mean Corpuscular Hemoglobin Concent 33 32-36 g/dL Red Cell Distribution Width 12.4 10.0-14.5 % Platelet Count 342 130-400 10^3/uL Mean Platelet Volume 10.6 9.0-12.2 fL Immature Granulocyte % (Auto) 1 % Neutrophils (%) (Auto) 62 42-75 % Lymphocytes (%) (Auto) 29 12-44 % Monocytes (%) (Auto) 7 0-12 % Eosinophils (%) (Auto) 1 0-10 % Basophils (%) (Auto) 1 0-10 % Neutrophils # (Auto) 6.6 1.8-7.8 10^3/uL Lymphocytes # (Auto) 3.1 1.0-4.0 10^3/uL Monocytes # (Auto) 0.7 0.0-1.0 10^3/uL Eosinophils # (Auto) 0.1 0.0-0.3 10^3/uL Basophils # (Auto) 0.1 0.0-0.1 10^3/uL Immature Granulocyte # (Auto) 0.1 0.0-0.1 10^3/uL Sodium Level 138 135-145 MMOL/L Potassium Level 4.1 3.6-5.0 MMOL/L Chloride Level 107 98-107 MMOL/L Carbon Dioxide Level 20 L 21-32 MMOL/L Anion Gap 11 5-14 MMOL/L Blood Urea Nitrogen 9 7-18 MG/DL Creatinine 0.87 0.60-1.30 MG/DL Estimat Glomerular Filtration Rate 88 BUN/Creatinine Ratio 10 Glucose Level 118 H 70-105 MG/DL Calcium Level 9.1 8.5-10.1 MG/DL Corrected Calcium 9.3 8.5-10.1 MG/DL Phosphorus Level 3.5 2.3-4.7 MG/DL Magnesium Level 1.8 1.6-2.4 MG/DL Total Bilirubin 0.3 0.1-1.0 MG/DL Aspartate Amino Transf (AST/SGOT) 31 5-34 U/L Alanine Aminotransferase (ALT/SGPT) 43 0-55 U/L Alkaline Phosphatase 72 40-136 U/L Total Protein 6.7 6.4-8.2 GM/DL Albumin 3.7 3.2-4.5 GM/DL ECG Impression ECG Comment Electrocardiogram obtained in the emergency room on 09/19/2021 shows sinus tachycardia at 121 bpm with low voltage in the precordial leads and nonspecific intraventricular conduction delay. Diagnosis/Problems Diagnosis/Problems (1) Right heart failure Assessment & Plan: She has evidence of right-sided chamber enlargement and right ventricular dysfunction. This is most likely due to right heart strain from the pulmonary embolism. This should resolve spontaneously with treatment of the pulmonary embolism. (2) Pulmonary embolism Assessment & Plan: This was probably in someway related to her surgery on top of her increased risk due to morbid obesity. She is on intravenous heparin. She has been normotensive. I do not see any strong indication for administering thrombolytics at this time. The intravenous heparin will ultimately need to be transitioned over to oral medication. (3) Lymphedema associated with obesity Assessment & Plan: This may have contributed to the increased risk of developing deep venous thrombosis following her ankle surgery. (4) Morbid obesity Status: Chronic Assessment & Plan: This has probably caused her chronic lymphedema. This could put her at risk of recurrent deep venous thrombosis. She needs to work on weight loss. Problem Qualifiers (1) Pulmonary embolism: Pulmonary embolism type: saddle Chronicity: acute Acute cor pulmonale presence: with acute cor pulmonale Qualified Codes: I26.02 - Saddle embolus of pulmonary artery with acute cor pulmonale DANIELA ALVAREZ JR, MD Sep 20, 2021 09:05
--- NOTE | 2021-09-20 09:15 | Tele-ICU Progress Note ---
Subjective Date Seen by a Provider: Sep 20, 2021 Time Seen by a Provider: 09:15 Sepsis Event Evaluation Height, Weight, BMI Height: 5'10.00" Weight: 180lbs. 0.0oz. 81.427574zo; 44.46 BMI Method: Exam Exam Patient acknowledged, consented, and participated in this virtual visit which was conducted using real time audio/video Vital Signs Date Time Temp Pulse Resp B/P (MAP) Pulse Ox O2 Delivery O2 Flow Rate FiO2 09/20/21 09:00 108 14 123/90 99 Nasal Cannula 1.00 09/20/21 08:58 100 Nasal Cannula 1.00 09/20/21 08:00 104 14 116/76 98 Nasal Cannula 1.00 09/20/21 07:30 100 09/20/21 07:00 91 14 107/72 99 Nasal Cannula 1.00 09/20/21 06:00 97 14 111/71 98 Nasal Cannula 1.00 09/20/21 05:00 100 13 110/66 97 Nasal Cannula 1.00 09/20/21 04:10 96 Nasal Cannula 1.00 09/20/21 04:00 37.0 109 16 110/67 96 Nasal Cannula 1.00 09/20/21 03:00 108 17 115/70 97 Nasal Cannula 1.00 09/20/21 02:00 111 14 108/68 96 Nasal Cannula 1.00 09/20/21 01:00 105 15 108/68 96 Nasal Cannula 1.00 09/20/21 01:00 105 09/20/21 00:00 107 16 116/67 98 Nasal Cannula 1.00 09/19/21 23:35 36.4 09/19/21 23:10 99 Nasal Cannula 1.00 09/19/21 23:00 113 20 112/75 97 Nasal Cannula 1.00 09/19/21 22:00 114 13 118/80 99 Nasal Cannula 1.00 09/19/21 21:45 113 15 125/80 99 Nasal Cannula 1.00 09/19/21 21:30 107 13 124/83 100 Nasal Cannula 1.00 09/19/21 21:15 118 12 125/86 99 Nasal Cannula 1.00 09/19/21 21:04 Nasal Cannula 1.00 09/19/21 21:00 125 10 120/89 98 Nasal Cannula 1.00 09/19/21 20:45 37.1 122 22 140/94 99 Nasal Cannula 1.00 09/19/21 20:45 36.2 156 97 24 09/19/21 20:44 126 09/19/21 20:24 121 22 132/88 100 Nasal Cannula 1.00 09/19/21 13:28 Nasal Cannula 1.00 09/19/21 13:28 36.2 156 26 142/98 (113) 97 Nasal Cannula 1.00 I & O0 09/20/21 07:00 Intake Total 1250 ml Output Total 1940 ml Balance -690 ml Height & Weight Height: 5'10.00" Weight: 180lbs. 0.0oz. 81.042032ao; 44.46 BMI Method: General Appearance: WD/WN, Mild Distress (Dyspnea on exertion), Obese HEENT: PERRL/EOMI, Normal ENT Inspection Neck: Normal Inspection; No JVD Respiratory: Lungs Clear, Normal Breath Sounds, No Accessory Muscle Use, No Respiratory Distress Cardiovascular: No Edema, No Murmur, Tachycardia (Regular) Capillary Refill: Less Than 3 Seconds Extremity: No Pedal Edema, Other (Right foot remains in boot) Neurologic/Psychiatric: Alert, Oriented x3, Normal Mood/Affect Skin: Normal Color, Warm/Dry Results Lab Laboratory Tests 09/19/21 13:40 09/20/21 04:30 Assessment/Plan Assessment/Plan (Tele-ICU Physician , Progress Note ) Available chart/ vitals / labs / Images reviewed Video assessment done using teleICU camera, rest of exam as per RN Discussed with RN , EXAM PER RN Events overnight : Afebrile FiO2 - 1L I/O = neg 500 Drips: hep Pressors: , hemodynamically stable Consultants: toña Hospital course: (09/19) 36y F S/P recent ankle surgery and plating --> SADDLE PE A/P Saddle PE with positive occlusive DVT and right heart strain - good candidate for tPA - as per cards/ PCP -cont heparin gtt for now - follow closely Lines : (Central Line Necessity Reviewed) Medrano: OG: Nutrition: Analgesia: Anxiety/ delirium VTE Prophylaxis: Stress Ulcer Prophylaxis: Plans in collaboration with bedside consultants and IM MDs. Discussed with RN to reach out if any questions or concerns A total of 31 minutes of critical care time was devoted to this patient today, required to treat and/or prevent further deterioration of critical care condition ( as above) . LEOBARDO ARENAS MD Sep 20, 2021 09:15
[2021-09-20] MEDS: SENNOSIDES 8.6 MG (SENOKOT) TAB PO SCH ×2 (09:53→20:47)
[2021-09-20] MEDS: DOCUSATE SODIUM 100 MG (COLACE) CAP PO SCH ×2 (09:53→20:46)
[2021-09-20] MEDS ORDERED: IBUP-2473 PO (10:11)
[2021-09-20] MEDS ORDERED: MULT-1060 PO (10:11)
[2021-09-20] MEDS ORDERED: SPIR50TA4 PO (10:11)
[2021-09-20] MEDS ORDERED: LORA10TA7 PO (10:11)
[2021-09-20] MEDS ORDERED: ASPI325T32 PO (10:11)
[2021-09-20] MEDS ORDERED: DAPS60GE TOP (10:11)
[2021-09-20] MEDS ORDERED: OXYC1TAB11 PO (10:11)
--- NOTE | 2021-09-20 10:57 | History & Physical ---
WING CHAVEZ 09/20/21 1057: History of Present Illness History of Present Illness Reason for visit/HPI CC: Shortness of Breath s/p Ankle Surgery on 09/14/21 HPI: Heike Ball is a 36yoF with no significant PMHx who presented on 09/19/21 with shortness of breath and fatigue s/p ankle surgery on 09/14/21. She states that she was began feeling pain located in the posterior aspect of her right calf on 09/15/21; however, she believed this pain was secondary to surgery and thus did not seek medical treatment. Over the subsequent days, she began having difficulty catching her breath and became extremely short of breath after taking a sitting shower. On the day of admission, she took a seated shower and was unable to recover her breath and thus sought medical attention. She was evaluated in the ED. A CT angiogram of the chest was obtained and significant for a saddle pulmonary embolism with multiple emboli within all 5 lobes of the lung, along with right heart strain. She was immediately admitted to the ICU and a Heparin drip was initiated. She endorses no prior personal history of DVT/PE and no family history of DVT/PE or bleeding disorders. Date of Admission Sep 19, 2021 at 17:38 Date Seen by a Provider: Sep 20, 2021 Time Seen by a Provider: 09:00 I consulted on this patient on 09/20/21 10:52 Attending Physician Casie Kowalski DO Admitting Physician Casie Kowalski DO Consult Allergies and Home Medications Allergies Coded Allergies: No Known Drug Allergies (Verified , 07/14/08) Patient Home Medication List Home Medication List Reviewed: Yes Aspirin (Aspirin EC) 325 Mg Tablet.dr, 325 MG PO DAILY, (Reported) Entered as Reported by: STEPHAN GREER on 09/20/21 1011 Last Action: Reviewed Dapsone (Dapsone) 60 Gm Gel..gram., 1 APPLIC TOP UD PRN for ACNE, (Reported) Entered as Reported by: STEPHAN GREER on 09/20/21 101 Last Action: Reviewed Ibuprofen (Ibuprofen) 200 Mg Tablet, 600 MG PO Q8H PRN for PAIN-MILD (1-4), (Reported) Entered as Reported by: STEPHAN GREER on 09/20/21 1011 Last Action: Reviewed Loratadine (Loratadine) 10 Mg Tablet, 10 MG PO HS, (Reported) Entered as Reported by: STEPHAN GREER on 09/20/21 101 Last Action: Reviewed Multivitamin/Iron/Folic Acid (Centrum Women Tablet) 1 Each Tablet, 1 EACH PO DAILY, (Reported) Entered as Reported by: STEPHAN GREER on 09/20/21 1011 Last Action: Reviewed Oxycodone HCl/Acetaminophen (Oxycodone-Acetaminophen 5-325) 1 Each Tablet, 1 EA PO Q4H PRN for PAIN-MODERATE (5-7), (Reported) Entered as Reported by: STEPHAN GREER on 09/20/21 101 Last Action: Reviewed Spironolactone (Spironolactone) 50 Mg Tablet, 150 MG PO DAILY, (Reported) Entered as Reported by: STEPHAN GREER on 09/20/21 101 Last Action: Reviewed Discontinued Medications Ibuprofen (Motrin) 600 Mg Tab, 600 MG PO Q6HR PRN, (Reported) Discontinued Reason: No Longer Taking Entered as Reported by: SALEEM KWAN on 05/06/10 1221 Last Action: Discontinued Oxycodone Hcl/Acetaminophen (Percocet 5-325 Mg Tablet) 1 Each Tablet, 1-2 EACH PO Q4-6 HOURS PRN, (Reported) Discontinued Reason: No Longer Taking Entered as Reported by: SALEEM KWAN on 05/06/101 Last Action: Discontinued Vits W-Ca,Fe,Fa(<1MG) () 1 Each Tablet, 1 EACH PO DAILY, (Reported) Discontinued Reason: No Longer Taking Entered as Reported by: SALEEM KWAN on 05/06/10 1224 Last Action: Discontinued Past Jqudwcb-Fkryfv-Flcbgi Hx Patient Social History Tobacco Use?: No Smoking Status: Never a Smoker Use of E-Cig and/or Vaping dev: No Substance use?: No Alcohol Use?: Yes Alcohol type: Wine Alcohol Frequency: Couple times a week Pt feels they are or have been: No Immunizations Up To Date First/Initial COVID19 Vaccinat: 2020 Second COVID19 Vaccination Kg: 2020 Tetanus Booster (TDap): Unknown Hepatitis A: No Hepatitis B: No Current Status status: No status: No Advance Directives: No Communicates: Verbally Primary Language: [place] Islander Preferred Spoken Language: [place] Islander Is interpretation needed?: No Implanted or Applied Medical D: Orthopedic hardware Past Medical History Surgeries: Orthopedic (Knee, ankle) Family Medical History No Pertinent Family Hx Review of Systems Constitutional: see HPI EENTM: no symptoms reported Respiratory: short of breath Cardiovascular: no symptoms reported Gastrointestinal: no symptoms reported Genitourinary: no symptoms reported Musculoskeletal: other (right ankle pain s/p surgery) Skin: no symptoms reported Psychiatric/Neurological: No Symptoms Reported Physical Exam Vital Signs Vital Signs - First Documented 09/19/21 20:45 FiO2 24 Capillary Refill : Less Than 3 Seconds Height, Weight, BMI Height: 5'10.00" Weight: 180lbs. 0.0oz. 81.960590yp; 44.46 BMI Method: General Appearance: No Apparent Distress, WD/WN HEENT: PERRL/EOMI, Pharynx Normal, Moist Mucous Membranes Neck: Full Range of Motion, Normal Inspection, Non Tender, Supple Respiratory: Chest Non Tender, Lungs Clear, Normal Breath Sounds, No Accessory Muscle Use, No Respiratory Distress Cardiovascular: Regular Rate, Rhythm, No Edema, No Gallop, No JVD, No Murmur, Normal Peripheral Pulses Gastrointestinal: Normal Bowel Sounds, No Organomegaly, Non Tender, Soft Rectal: Deferred Back: Normal Inspection Extremity: Normal Capillary Refill, Normal Inspection, Normal Range of Motion, Non Tender, Calf Tenderness (mild right calf tenderness to palpation) Neurologic/Psychiatric: Alert, Oriented x3, No Motor/Sensory Deficits, Normal Mood/Affect, battery starter II-XII Norm as Tested Skin: Normal Color, Warm/Dry Lymphatic: No Adenopathy Assessment/Plan Assessment and Plan Assessment: Hypoxia Saddle Pulmonary Embolism Right Heart Strain Post-Operative Pain Morbid Obesity Plan: eICU consulted Heparin ggt - consider switch to OAC Pain regimen s/p ankle surgery Bowel regimen LE USG 09/20 shows residual clot in right lower extremity IVF @ 70mL/hr Problems: (1) Pulmonary embolism Qualifiers: Qualified Codes: I26.02 - Saddle embolus of pulmonary artery with acute cor pulmonale (2) Right heart failure (3) Hypoxia Status: Acute (4) Morbid obesity Status: Chronic Clinical Quality Measures DVT/VTE Risk/Contraindication: Contraindications-Mechi: Other *list below* Other: dvt CASIE KOWALSKI DO 09/21/21 0514: History of Present Illness History of Present Illness Reason for visit/HPI CC: Massive saddle pulmonary embolism HPI: 36 yr old [facility] pt of mine for 18 years. She has no real past medical h istory. She presented to the ER with SOB. She had right ankle surgery after a fracture by Dr. Topete when she fell after she missed a step on her stairway. She had surgery to repair that but started having SOB on the day after Monday. So she only worsened as the days progressed and ultimately became so SOB during a shower yesterday that she presented to the walk-in clinic. She was told to go to the ER and found to have massive pulmonary embolism and the ultrasound today confirmed a right sided DVT. She has been placed on heparin drip. Dr. Hector consulted for right heart strain on echocardiogram. Allergies and Home Medications Allergies Coded Allergies: No Known Drug Allergies (Verified , 07/14/08) Patient Home Medication List Home Medication List Reviewed: Yes Aspirin (Aspirin EC) 325 Mg Tablet.dr, 325 MG PO DAILY, (Reported) Entered as Reported by: STEPHAN GREER on 09/20/211010 Last Action: Reviewed Dapsone (Dapsone) 60 Gm Gel..gram., 1 APPLIC TOP UD PRN for ACNE, (Reported) Entered as Reported by: STEPHAN GREER on 09/20/211010 Last Action: Reviewed Ibuprofen (Ibuprofen) 200 Mg Tablet, 600 MG PO Q8H PRN for PAIN-MILD (1-4), (Reported) Entered as Reported by: STEPHAN GREER on 09/20/211010 Last Action: Reviewed Loratadine (Loratadine) 10 Mg Tablet, 10 MG PO HS, (Reported) Entered as Reported by: STEPHAN GREER on 09/20/211010 Last Action: Reviewed Multivitamin/Iron/Folic Acid (Centrum Women Tablet) 1 Each Tablet, 1 EACH PO DAILY, (Reported) Entered as Reported by: STEPHAN GREER on 09/20/211010 Last Action: Reviewed Oxycodone HCl/Acetaminophen (Oxycodone-Acetaminophen 5-325) 1 Each Tablet, 1 EA PO Q4H PRN for PAIN-MODERATE (5-7), (Reported) Entered as Reported by: STEPHAN GREER on 2/14/22 1011 Last Action: Reviewed Spironolactone (Spironolactone) 50 Mg Tablet, 150 MG PO DAILY, (Reported) Entered as Reported by: STEPHAN GREER on 09/20/21 1011 Last Action: Reviewed Discontinued Medications Ibuprofen (Motrin) 600 Mg Tab, 600 MG PO Q6HR PRN, (Reported) Discontinued Reason: No Longer Taking Entered as Reported by: SALEEM KWAN on 05/06/10 1221 Last Action: Discontinued Oxycodone Hcl/Acetaminophen (Percocet 5-325 Mg Tablet) 1 Each Tablet, 1-2 EACH PO Q4-6 HOURS PRN, (Reported) Discontinued Reason: No Longer Taking Entered as Reported by: SALEEM KWAN on 05/06/10 1221 Last Action: Discontinued Vits W-Ca,Fe,Fa(<1MG) () 1 Each Tablet, 1 EACH PO DAILY, (Reported) Discontinued Reason: No Longer Taking Entered as Reported by: SALEEM KWAN on 05/06/10 1224 Last Action: Discontinued Past Btumaso-Ddqymt-Vhehpi Hx Patient Social History Marrital Status: Employed/Student: employed Tobacco Use?: No Alcohol Use?: No Review of Systems Constitutional: see HPI, malaise, weakness Respiratory: dyspnea on exertion, short of breath Cardiovascular: no symptoms reported Gastrointestinal: no symptoms reported Genitourinary: no symptoms reported Musculoskeletal: other (right ankle pain s/p surgery) Skin: no symptoms reported Psychiatric/Neurological: No Symptoms Reported All Other Systems Reviewed Negative Unless Noted: Yes Physical Exam General Appearance: WD/WN, Anxious, Mild Distress Eyes: Bilateral Eye Normal Inspection, Bilateral Eye PERRL, Bilateral Eye EOMI HEENT: PERRL/EOMI, Normal ENT Inspection, Pharynx Normal Neck: Full Range of Motion, Normal Inspection, Non Tender, Supple, Carotid Bruit Respiratory: Chest Non Tender, Lungs Clear, Normal Breath Sounds, No Accessory Muscle Use, No Respiratory Distress Cardiovascular: Regular Rate, Rhythm, No Edema, No Gallop, No JVD, No Murmur, Normal Peripheral Pulses Gastrointestinal: Normal Bowel Sounds, No Organomegaly, No Pulsatile Mass, Non Tender, Soft Back: Normal Inspection, No CVA Tenderness, No Vertebral Tenderness Extremity: Normal Capillary Refill, Normal Inspection, Normal Range of Motion, Non Tender, No Calf Tenderness, Calf Tenderness (mild right calf tenderness to palpation) Neurologic/Psychiatric: Alert, Oriented x3, No Motor/Sensory Deficits, Normal Mood/Affect, battery starter II-XII Norm as Tested Skin: Normal Color, Warm/Dry Lymphatic: No Adenopathy Assessment/Plan Assessment and Plan Assessment: Acute hypoxic respiratory insufficiency Saddle pulmonary emboli Right lower extremity DVT Right ankle fracture status post repair Obesity Plan: Anticoagulation Cardiology consult appreciated eICU appreciated Admission Diagnosis Admission Status: Inpatient Order (span 2 midnights) Reason for Inpatient Admission: Massive PE Supervisory-Addendum Brief Verification & Attestation Participated in pt care: history, MDM, physical Personally performed: exam, history, MDM, supervision of care Care discussed with: Medical Student Procedures: n/a Results interpretation: Verified all documentation Verification and Attestation of Medical Student E/M Service A medical student performed and documented this service in my presence. I reviewed and verified all information documented by the medical student and made modifications to such information, when appropriate. I personally performed the physical exam and medical decision making. Casie Kowalski, Sep 21, 2021,05:14 WING CHAVEZ Sep 20, 2021 10:57 CASIE KOWALSKI DO Sep 21, 2021 05:14
--- NOTE | 2021-09-20 11:27 | Progress Note ---
JORGE BURGESS MED STUDENT 09/20/21 1126: Subjective Date Seen by a Provider: Sep 20, 2021 Time Seen by a Provider: 08:10 Subjective/Events-last exam Pt states SOB is a little better this morning. Denies being in any pain. PT has remained hemodynamically stable since admission yesterday. Pt denies palpitations, headache, lightheadness, abd pain. Review of Systems General: No Chills, No Night Sweats, No Fatigue HEENT: No Head Aches, No Visual Changes Pulmonary: Dyspnea; No Cough Cardiovascular: No: Palpitations, Orthopnea, Edema, Lt Headedness Gastrointestinal: No: Nausea, Vomiting, Diarrhea, Constipation Genitourinary: No Dysuria, No Incontinence Neurological: No: Change in speech, Confusion Objective Exam Last Set of Vital Signs Vital Signs Date Time Temp Pulse Resp B/P (MAP) Pulse Ox O2 Delivery O2 Flow Rate FiO2 09/20/21 10:00 118 10 138/87 95 Nasal Cannula 1.00 09/20/21 04:00 37.0 09/19/21 20:45 24 Capillary Refill : Less Than 3 Seconds I&O Intake and Output 09/20/21 00:00 Intake Total 500 ml Output Total 1000 ml Balance -500 ml Intake Oral 500 ml Output Urine Total 1000 ml Daily Weight Change No Results Lab Laboratory Tests 09/19/21 13:40: White Blood Count 11.1H, Red Blood Count 4.64, Hemoglobin 14.5, Hematocrit 44, Mean Corpuscular Volume 94, Mean Corpuscular Hemoglobin 31, Mean Corpuscular Hemoglobin Concent 33, Red Cell Distribution Width 12.5, Platelet Count 358, Mean Platelet Volume 10.3, Immature Granulocyte % (Auto) 1, Neutrophils (%) (Auto) 70, Lymphocytes (%) (Auto) 22, Monocytes (%) (Auto) 6, Eosinophils (%) (Auto) 1, Basophils (%) (Auto) 1, Neutrophils # (Auto) 7.8, Lymphocytes # (Auto) 2.5, Monocytes # (Auto) 0.6, Eosinophils # (Auto) 0.1, Basophils # (Auto) 0.1, Immature Granulocyte # (Auto) 0.1, Prothrombin Time 13.7, INR Comment 1.0, Activated Partial Thromboplast Time 36H, D-Dimer 8.26H, Sodium Level 137, Potassium Level 4.1, Chloride Level 104, Carbon Dioxide Level 19L, Anion Gap 14, Blood Urea Nitrogen 11, Creatinine 0.91, Estimat Glomerular Filtration Rate 83, BUN/Creatinine Ratio 12, Glucose Level 115H, Calcium Level 9.6, Corrected Calcium 9.5, Total Bilirubin 0.4, Aspartate Amino Transf (AST/SGOT) 36H, Alanine Aminotransferase (ALT/SGPT) 45, Alkaline Phosphatase 83, C-Reactive Protein High Sensitivity 3.51H, Total Protein 7.6, Albumin 4.1, Serum Test, Qualitative NEGATIVE 09/19/21 13:48: Influenza Type A (RT-PCR) Not Detected, Influenza Type B (RT-PCR) Not Detected, SARS-CoV-2 RNA (RT-PCR) Not Detected 09/19/21 23:07: Activated Partial Thromboplast Time 62H 09/20/21 04:30: White Blood Count 10.6, Red Blood Count 4.34, Hemoglobin 13.3, Hematocrit 41, Mean Corpuscular Volume 94, Mean Corpuscular Hemoglobin 31, Mean Corpuscular Hemoglobin Concent 33, Red Cell Distribution Width 12.4, Platelet Count 342, Mean Platelet Volume 10.6, Immature Granulocyte % (Auto) 1, Neutrophils (%) (Auto) 62, Lymphocytes (%) (Auto) 29, Monocytes (%) (Auto) 7, Eosinophils (%) (Auto) 1, Basophils (%) (Auto) 1, Neutrophils # (Auto) 6.6, Lymphocytes # (Auto) 3.1, Monocytes # (Auto) 0.7, Eosinophils # (Auto) 0.1, Basophils # (Auto) 0.1, Immature Granulocyte # (Auto) 0.1, Activated Partial Thromboplast Time 132*H, Sodium Level 138, Potassium Level 4.1, Chloride Level 107, Carbon Dioxide Level 20L, Anion Gap 11, Blood Urea Nitrogen 9, Creatinine 0.87, Estimat Glomerular Filtration Rate 88, BUN/Creatinine Ratio 10, Glucose Level 118H, Calcium Level 9.1, Corrected Calcium 9.3, Total Bilirubin 0.3, Aspartate Amino Transf (AST/SGOT) 31, Alanine Aminotransferase (ALT/SGPT) 43, Alkaline Phosphatase 72, Total Protein 6.7, Albumin 3.7, Phosphorus Level 3.5, Magnesium Level 1.8 09/20/21 10:48: Assessment/Plan Assessment/Plan Assess & Plan/Chief Complaint Submassive Pulmonary Embolism, provoked. R LE DVT s/p 09/14 R ankle surgery 09/19 most notabely showed large saddle PE 09/20 R LE venous doppler + for extensive DVT. Appears provoked given recenent R ankle sx on 09/14, symptoms started 09/16. Echo with evidence of R heart strain, elevated pulm Arterial pressure. Pt remains hemodynamically stable since admission, and thus didn't require immediate -ectomy or Tpa. IV heparin Follow serial PTT Supportive PRN 5mg oxycodone for pain + bowel regimen. GI ppx: add 20 pepcid DVT ppx: therapeutic tx... Dispo: continued to monitor in ICU. Clinical Quality Measures DVT/VTE Risk/Contraindication: Contraindications-Mechi: Other *list below* Other: dvt CASIE KOWALSKI DO 09/21/21 0518: Supervisory-Addendum Brief Verification & Attestation Participated in pt care: history, MDM, physical Personally performed: exam, history, MDM, supervision of care Care discussed with: Medical Student Procedures: n/a Results interpretation: Verified all documentation Verification and Attestation of Medical Student E/M Service A medical student performed and documented this service in my presence. I reviewed and verified all information documented by the medical student and made modifications to such information, when appropriate. I personally performed the physical exam and medical decision making. Casie Kowalski, Sep 21, 2021,05:18 JORGE BURGESS MED STUDENT Sep 20, 2021 11:26 CASIE KOWALSKI DO Sep 21, 2021 05:18
[2021-09-20] MEDS: HEParin 1000 UNIT/ML (10ML VIAL) FOR BOLUS IV SCH ×2 (12:12→23:52)
[2021-09-20] MEDS: HEParin DRIP 25000 UNIT/500ML 500 ML IV SCH (12:12)
[2021-09-20] MEDS: NS IV 1000 ML 1,000 ML IV SCH (12:42)
[2021-09-20] MEDS ORDERED: ARTIFICAL TEARS 0.4 ML UNIT DOSE (REFRESH PLUS) OU PRN (13:45)
--- NOTE | 2021-09-20 15:13 | Pulmonary Consultation ---
History of Present Illness History of Present Illness Date Seen by Provider: Sep 20, 2021 Time Seen by Provider: 15:07 Date of Admission Asked to see pt due to large saddle pulm emb. Had recent ankle surg and yesterday developed SOB, CTA showed saddle embolus Echo showed severe dilatation of RV with estimated SPAP 39, pt started on IV heparin d dimer was about 8, last PTT 66 Allergies and Home Medications Allergies Coded Allergies: No Known Drug Allergies (Verified , 07/14/08) Home Medications Aspirin 325 Mg Tablet.dr, 325 MG PO DAILY, (Reported) STARTED WHEN DISCHARGED HOME FROM RECENT SURGERY Dapsone 60 Gm Gel..gram., 1 APPLIC TOP UD PRN for ACNE, (Reported) APPLIES SPOT TREATMENTS TO THE FACE Ibuprofen 200 Mg Tablet, 600 MG PO Q8H PRN for PAIN-MILD (1-4), (Reported) Loratadine 10 Mg Tablet, 10 MG PO HS, (Reported) Multivitamin/Iron/Folic Acid 1 Each Tablet, 1 EACH PO DAILY, (Reported) Oxycodone HCl/Acetaminophen 1 Each Tablet, 1 EA PO Q4H PRN for PAIN-MODERATE (5- 7), (Reported) Spironolactone 50 Mg Tablet, 150 MG PO DAILY, (Reported) TAKES 3 (50MG) TABS Past Medical/Social/Family Hx Patient Social History Tobacco Use?: No Smoking Status: Never a Smoker Use of E-Cig and/or Vaping dev: No Substance use?: No Alcohol Use?: Yes Alcohol type: Wine Alcohol Frequency: Couple times a week Pt stated abuse/neglect: No Immunizations Up To Date Influenza Vaccine Up-to-Date: Yes; Up-to-Date First/Initial COVID19 Vaccinat: 2020 Second COVID19 Vaccination Kg: 2020 Tetanus Booster (TDap): Unknown Hepatitis A: No Hepatitis B: No TB Skin Test: None Current Status status: No status: No Advance Directives: No Communicates: Verbally Primary Language: Egyptian Preferred Spoken Language: Egyptian Is interpretation needed?: No Implanted or Applied Medical D: Orthopedic hardware Review of Systems Constitutional: see HPI Sepsis Event Evaluation Height, Weight, BMI Height: 5'10.00" Weight: 180lbs. 0.0oz. 81.466050pr; 44.46 BMI Method: Exam Exam Patient acknowledged, consented, and participated in this virtual visit which was conducted using real time audio/video Vital Signs Date Time Temp Pulse Resp B/P (MAP) Pulse Ox O2 Delivery O2 Flow Rate FiO2 09/20/21 14:00 121 30 111/105 99 Nasal Cannula 1.00 09/20/21 13:29 111 09/20/21 13:00 102 16 125/82 97 Nasal Cannula 1.00 09/20/21 12:00 109 9 118/83 97 Nasal Cannula 1.00 09/20/21 12:00 96 Nasal Cannula 1.00 09/20/21 11:00 106 9 119/81 98 Nasal Cannula 1.00 09/20/21 10:00 118 10 138/87 95 Nasal Cannula 1.00 09/20/21 09:00 108 14 123/90 99 Nasal Cannula 1.00 09/20/21 08:58 100 Nasal Cannula 1.00 09/20/21 08:00 96 Nasal Cannula 1.00 09/20/21 08:00 104 14 116/76 98 Nasal Cannula 1.00 09/20/21 07:30 100 09/20/21 07:00 91 14 107/72 99 Nasal Cannula 1.00 09/20/21 06:00 97 14 111/71 98 Nasal Cannula 1.00 09/20/21 05:00 100 13 110/66 97 Nasal Cannula 1.00 09/20/21 04:10 96 Nasal Cannula 1.00 09/20/21 04:00 37.0 109 16 110/67 96 Nasal Cannula 1.00 09/20/21 03:00 108 17 115/70 97 Nasal Cannula 1.00 09/20/21 02:00 111 14 108/68 96 Nasal Cannula 1.00 09/20/21 01:00 105 15 108/68 96 Nasal Cannula 1.00 09/20/21 01:00 105 09/20/21 00:00 107 16 116/67 98 Nasal Cannula 1.00 09/19/21 23:35 36.4 09/19/21 23:10 99 Nasal Cannula 1.00 09/19/21 23:00 113 20 112/75 97 Nasal Cannula 1.00 09/19/21 22:00 114 13 118/80 99 Nasal Cannula 1.00 09/19/21 21:45 113 15 125/80 99 Nasal Cannula 1.00 09/19/21 21:30 107 13 124/83 100 Nasal Cannula 1.00 09/19/21 21:15 118 12 125/86 99 Nasal Cannula 1.00 09/19/21 21:04 Nasal Cannula 1.00 09/19/21 21:00 125 10 120/89 98 Nasal Cannula 1.00 09/19/21 20:45 37.1 122 22 140/94 99 Nasal Cannula 1.00 09/19/21 20:45 36.2 156 97 24 09/19/21 20:44 126 09/19/21 20:24 121 22 132/88 100 Nasal Cannula 1.00 I & O 09/20/21 07:00 Intake Total 1250 ml Output Total 1940 ml Balance -690 ml Height & Weight Height: 5'10.00" Weight: 180lbs. 0.0oz. 81.382567xh; 44.46 BMI Method: General Appearance: No Apparent Distress, WD/WN HEENT: PERRL/EOMI, Pharynx Normal, Moist Mucous Membranes Neck: Full Range of Motion, Normal Inspection, Non Tender, Supple Respiratory: Chest Non Tender, Lungs Clear, Normal Breath Sounds, No Accessory Muscle Use, No Respiratory Distress Cardiovascular: Regular Rate, Rhythm, No Edema, No Gallop, No JVD, No Murmur, Normal Peripheral Pulses Capillary Refill: Less Than 3 Seconds Extremity: Normal Capillary Refill, Normal Inspection, Normal Range of Motion, Non Tender, Calf Tenderness (mild right calf tenderness to palpation) Neurologic/Psychiatric: Alert, Oriented x3, No Motor/Sensory Deficits, Normal Mood/Affect, computer operator II-XII Norm as Tested Skin: Normal Color, Warm/Dry Lymphatic: No Adenopathy Results Lab Laboratory Tests 09/19/21 13:40 09/20/21 04:30 Assessment/Plan Assessment/Plan Large pul emb, on IV heparin, not given tPA.will keep on IV heparin, doing well, watch for bleeding, keep PTT in therapeutic range Looks good, no SOB, no chest pain, just on nasal cannula with good SpO2 no bleeding Critical Care: Critically Ill Patient Time spent with patient (mins): 25 CHASITY PADILLA MD Sep 20, 2021 15:13
[2021-09-21 05:32] LABS: BASOPHILS % (AUTO) 0 % (0-10); EOSINOPHILS # (AUTO) 0.2 10^3/uL (0.0-0.3); EOSINOPHILS % (AUTO) 2 % (0-10); HEMATOCRIT 40 % (35-52); HEMOGLOBIN 13.2 g/dL (11.5-16.0); LYMPHOCYTES # (AUTO) 2.8 10^3/uL (1.0-4.0); LYMPHOCYTES % (AUTO) 30 % (12-44); MEAN CORPUSCULAR HEMOGLOBIN 31 pg (25-34); MEAN CORPUSCULAR HGB CONC 33 g/dL (32-36); MEAN CORPUSCULAR VOLUME 94 fL (80-99); MEAN PLATELET VOLUME 10.5 fL (9.0-12.2); MONOCYTES # (AUTO) 0.6 10^3/uL (0.0-1.0); MONOCYTES % (AUTO) 7 % (0-12); NEUTROPHILS # (AUTO) 5.7 10^3/uL (1.8-7.8); NEUTROPHILS % (AUTO) 61 % (42-75); PLATELET COUNT 328 10^3/uL (130-400); WHITE BLOOD COUNT 9.3 10^3/uL (4.3-11.0)
[2021-09-21] MEDS: NS IV 1000 ML 1,000 ML IV SCH (05:48)
[2021-09-21 05:50] LABS: ALBUMIN 3.6 GM/DL (3.2-4.5); POTASSIUM 4.2 MMOL/L (3.6-5.0)
[2021-09-21 05:51] LABS: CALCIUM 8.9 MG/DL (8.5-10.1)
[2021-09-21 05:53] LABS: TOTAL PROTEIN 6.6 GM/DL (6.4-8.2)
[2021-09-21 05:55] LABS: BILIRUBIN,TOTAL 0.5 MG/DL (0.1-1.0)
[2021-09-21 05:56] LABS: CREATININE SERUM 0.79 MG/DL (0.60-1.30); PHOSPHORUS 3.9 MG/DL (2.3-4.7)
[2021-09-21 05:59] LABS: MAGNESIUM 1.9 MG/DL (1.6-2.4)
[2021-09-21] MEDS: DOCUSATE SODIUM 100 MG (COLACE) CAP PO SCH ×2 (09:00→22:46)
[2021-09-21] MEDS: SENNOSIDES 8.6 MG (SENOKOT) TAB PO SCH ×2 (09:00→22:46)
[2021-09-21] MEDS: ACETAMINOPHEN 325 MG TABLET PO PRN ×2 (09:26→17:42)
--- NOTE | 2021-09-21 10:03 | Cardiology Progress Note ---
Progress Note-Cardiology Events since last exam Date Seen by Provider: Sep 21, 2021 Time Seen by Provider: 10:03 Events since last exam I am following her due to pulmonary embolism with right heart strain. Her b reathing is improving. She is using her incentive spirometer. She denies chest discomfort, palpitations, syncope, or ankle edema. Certain portions of this document may have been dictated utilizing voice recognition technology. Inherent to this technology, typographical and grammatical errors may exist. As much as I am diligent to identify and correct these mistakes, some errors may remain in the document. Vitals Last set of Vitals Signs Vital Signs 09/19/21 09/21/21 09/21/21 20:45 12:00 12:49 Pulse 111 Resp 16 B/P (MAP) 125/95 Pulse Ox 96 O2 Delivery Nasal Cannula O2 Flow Rate 1.00 FiO2 24 Labs Labs Laboratory Tests 09/21/21 05:10 Exam Vital Signs Vital Signs Date Time Temp Pulse Resp B/P (MAP) Pulse Ox O2 Delivery O2 Flow Rate FiO2 09/21/21 12:49 111 09/21/21 12:00 16 125/95 96 Nasal Cannula 1.00 09/21/21 08:00 36.5 09/19/21 20:45 24 Physical Exam General: Alert. No acute distress. She is obese. Eye: No xanthelasma. HENT: Normocephalic. Neck: Jugular venous pressure does not appear elevated. Respiratory: Lungs are clear to auscultation. Respirations are non-labored. Breath sounds are equal. Symmetrical chest wall expansion. Cardiovascular: Normal rate. Regular rhythm. No murmur. No gallop. No edema. Gastrointestinal: Soft. Normal bowel sounds. Skin: Warm. Dry. Neurologic: Alert and oriented to person, place, time. Cranial nerves 3-11 grossly intact. Psychiatric: Cooperative. Appropriate mood & affect. Labs Laboratory Tests Test 09/20/21 23:08 09/21/21 05:10 Range/Units Activated Partial Thromboplast Time 49 H 89 H 24-35 SEC White Blood Count 9.3 4.3-11.0 10^3/uL Red Blood Count 4.28 3.80-5.11 10^6/uL Hemoglobin 13.2 11.5-16.0 g/dL Hematocrit 40 35-52 % Mean Corpuscular Volume 94 80-99 fL Mean Corpuscular Hemoglobin 31 25-34 pg Mean Corpuscular Hemoglobin Concent 33 32-36 g/dL Red Cell Distribution Width 12.7 10.0-14.5 % Platelet Count 328 130-400 10^3/uL Mean Platelet Volume 10.5 9.0-12.2 fL Immature Granulocyte % (Auto) 1 % Neutrophils (%) (Auto) 61 42-75 % Lymphocytes (%) (Auto) 30 12-44 % Monocytes (%) (Auto) 7 0-12 % Eosinophils (%) (Auto) 2 0-10 % Basophils (%) (Auto) 0 0-10 % Neutrophils # (Auto) 5.7 1.8-7.8 10^3/uL Lymphocytes # (Auto) 2.8 1.0-4.0 10^3/uL Monocytes # (Auto) 0.6 0.0-1.0 10^3/uL Eosinophils # (Auto) 0.2 0.0-0.3 10^3/uL Basophils # (Auto) 0.0 0.0-0.1 10^3/uL Immature Granulocyte # (Auto) 0.1 0.0-0.1 10^3/uL Sodium Level 137 135-145 MMOL/L Potassium Level 4.2 3.6-5.0 MMOL/L Chloride Level 107 98-107 MMOL/L Carbon Dioxide Level 19 L 21-32 MMOL/L Anion Gap 11 5-14 MMOL/L Blood Urea Nitrogen 9 7-18 MG/DL Creatinine 0.79 0.60-1.30 MG/DL Estimat Glomerular Filtration Rate 99 BUN/Creatinine Ratio 11 Glucose Level 109 H 70-105 MG/DL Calcium Level 8.9 8.5-10.1 MG/DL Corrected Calcium 9.2 8.5-10.1 MG/DL Phosphorus Level 3.9 2.3-4.7 MG/DL Magnesium Level 1.9 1.6-2.4 MG/DL Total Bilirubin 0.5 0.1-1.0 MG/DL Aspartate Amino Transf (AST/SGOT) 24 5-34 U/L Alanine Aminotransferase (ALT/SGPT) 40 0-55 U/L Alkaline Phosphatase 76 40-136 U/L Total Protein 6.6 6.4-8.2 GM/DL Albumin 3.6 3.2-4.5 GM/DL Diagnosis/Problems Diagnosis/Problems (1) Right heart failure Status: Acute Assessment & Plan: She has evidence of right-sided chamber enlargement and right ventricular dysfunction on her echocardiogram from admission. This is most likely due to right heart strain from the pulmonary embolism. This should resolve spontaneously with treatment of the pulmonary embolism. I will plan on a follow-up echocardiogram a few months after discharge. (2) Pulmonary embolism Assessment & Plan: This was probably in some way related to her surgery on top of her increased risk due to morbid obesity. She is being transitioned to oral anticoagulants by the primary attending. She has been normotensive. I did not see any urgent indication for thrombolytics when she presented. (3) Lymphedema associated with obesity Assessment & Plan: This may have contributed to the increased risk of developing deep venous thrombosis following her ankle surgery. (4) Morbid obesity Status: Chronic Assessment & Plan: This has probably caused her chronic lymphedema. This could put her at risk of recurrent deep venous thrombosis. She needs to work on weight loss. Problem Qualifiers (1) Pulmonary embolism: Pulmonary embolism type: saddle Chronicity: acute Acute cor pulmonale presence: with acute cor pulmonale Qualified Codes: I26.02 - Saddle embolus of pulmonary artery with acute cor pulmonale DANIELA ALVAREZ JR, MD Sep 21, 2021 10:03
[2021-09-21] MEDS: APIXABAN 5 MG (ELIQUIS) TABLET PO SCH ×2 (10:05→22:47)
[2021-09-21] MEDS: RT-ALBUTEROL/IPRATROPIUM 3 ML (DUONEB) VIAL INH SCH ×2 (10:06→21:43)
--- NOTE | 2021-09-21 10:47 | Progress Note ---
WING CHAVEZ 09/21/21 1047: Subjective Date Seen by a Provider: Sep 21, 2021 Time Seen by a Provider: 09:00 Subjective/Events-last exam Patient resting comfortably in bed this morning. States that she slept very well last night. Denies chest pain, SOB, difficulty breathing, dizziness, abdominal pain, nausea, vomiting, diarrhea. Asking about a scheduled road trip to [place] on 10/02/21; I recommended against such an extensive road trip so proximal to this hospitalization. She expressed understanding and was in agreement. Review of Systems General: No Chills, No Night Sweats HEENT: No Head Aches, No Visual Changes, No Eye Pain Pulmonary: No Dyspnea, No Cough Cardiovascular: No: Chest Pain, Palpitations, Orthopnea Gastrointestinal: No: Nausea, Vomiting, Abdominal Pain Genitourinary: No Dysuria, No Frequency Musculoskeletal: leg pain (right ankle s/p surgery); No: foot pain Neurological: No: Weakness, Numbness, Incoordination Focused Exam Sepsis Stage: Ruled Out Reason for ruling out sepsis: Massive Pulmonary Embolism Respiratory: Chest Non Tender, Lungs Clear, Normal Breath Sounds, No Accessory Muscle Use, No Respiratory Distress Cardiovascular: Regular Rate, Rhythm, No Edema, No Gallop, No JVD, No Murmur, Normal Peripheral Pulses Capillary Refill: Less Than 3 Seconds Skin: normal color, warm/dry Objective Exam Last Set of Vital Signs Vital Signs Date Time Temp Pulse Resp B/P (MAP) Pulse Ox O2 Delivery O2 Flow Rate FiO2 09/21/21 10:06 96 Nasal Cannula 0.50 09/21/21 10:00 94 121/81 09/21/21 09:00 15 09/21/21 08:00 36.5 09/19/21 20:45 24 Capillary Refill : Less Than 3 Seconds I&O Intake and Output 09/21/21 00:00 Intake Total 4600 ml Output Total 4690 ml Balance -90 ml Intake Oral 3600 ml IV Total 1000 ml Output Urine Total 4690 ml # Bowel Movements 2 General: Alert, Oriented X3, Cooperative, No Acute Distress HEENT: Atraumatic, PERRLA, EOMI, Mucous Memb Moist/[place] Neck: Supple, No JVD Lungs: Clear to Auscultation Heart: Regular Rate, Normal S1, Normal S2, No Murmurs Abdomen: Normal Bowel Sounds, Soft, No Tenderness, No Hepatosplenomegaly Extremities: No Clubbing, No Cyanosis, Other (2+ pitting edema in right leg up to mid-ankle s/p surgery) Skin: No Rashes, No Breakdown Neuro: Normal Speech, Normal Tone, Sensation Intact, Cranial Nerves 3-12 NL Psych/Mental Status: Mental Status NL, Mood NL Results Lab Laboratory Tests 09/20/21 10:48: Activated Partial Thromboplast Time 66H 09/20/21 14:31: Activated Partial Thromboplast Time 158*H 09/20/21 23:08: Activated Partial Thromboplast Time 49H 09/21/21 05:10: Activated Partial Thromboplast Time 89H, White Blood Count 9.3, Red Blood Count 4.28, Hemoglobin 13.2, Hematocrit 40, Mean Corpuscular Volume 94, Mean Corpuscular Hemoglobin 31, Mean Corpuscular Hemoglobin Concent 33, Red Cell Distribution Width 12.7, Platelet Count 328, Mean Platelet Volume 10.5, Immature Granulocyte % (Auto) 1, Neutrophils (%) (Auto) 61, Lymphocytes (%) (Auto) 30, Monocytes (%) (Auto) 7, Eosinophils (%) (Auto) 2, Basophils (%) (Auto) 0, Neutrophils # (Auto) 5.7, Lymphocytes # (Auto) 2.8, Monocytes # (Auto) 0.6, Eosinophils # (Auto) 0.2, Basophils # (Auto) 0.0, Immature Granulocyte # (Auto) 0.1, Sodium Level 137, Potassium Level 4.2, Chloride Level 107, Carbon Dioxide Level 19L, Anion Gap 11, Blood Urea Nitrogen 9, Creatinine 0.79, Estimat Glomerular Filtration Rate 99, BUN/Creatinine Ratio 11, Glucose Level 109H, Calcium Level 8.9, Corrected Calcium 9.2, Phosphorus Level 3.9, Magnesium Level 1.9, Total Bilirubin 0.5, Aspartate Amino Transf (AST/SGOT) 24, Alanine Aminotransferase (ALT/SGPT) 40, Alkaline Phosphatase 76, Total Protein 6.6, Albumin 3.6 Microbiology 09/19/21 MRSA Screen - Final, Complete MRSA not isolated Assessment/Plan Assessment/Plan Assess & Plan/Chief Complaint Assessment: Acute Hypoxic Respiratory Failure Saddle Pulmonary Embolism Right Heart Strain Right Lower Extremity DVT Right Ankle Fracture s/p Repair Morbid Obesity Plan: DC Heparin ggt, transition to Eliquis Transfer to floor DC IVF DC Medrano catheter Pain regimen s/p ankle surgery Bowel regimen Final Diagnosis Saddle Pulmonary Embolism Diagnosis/Problems Diagnosis/Problems (1) Acute respiratory failure with hypoxia Status: Acute (2) Pulmonary embolism Qualifiers: Qualified Codes: I26.02 - Saddle embolus of pulmonary artery with acute cor pulmonale (3) Right heart failure Status: Acute (4) Deep vein thrombosis of right lower extremity Status: Acute (5) Morbid obesity Status: Chronic Clinical Quality Measures Admission Status Admission Dx Saddle Pulmonary Embolism DVT/VTE Risk/Contraindication: Contraindications-Mechi: Other *list below* Other: dvt CASIE HARMAN DO 09/22/21 0555: Subjective Subjective/Events-last exam Pt is doing a lot better Will discontinue IV fluid and catheter Eliquis will be started at 10 mg BID and heparin drip will be stopped Transferring to the floor PT and OT will be initiated Review of Systems General: Fatigue, Malaise Musculoskeletal: leg pain (right ankle s/p surgery) Objective Exam General: Alert, Oriented X3, Cooperative, No Acute Distress Lungs: Clear to Auscultation, Normal Air Movement Heart: Regular Rate, Normal S1, Normal S2, No Murmurs Psych/Mental Status: Mental Status NL, Mood NL Assessment/Plan Assessment/Plan Assess & Plan/Chief Complaint Transition to Eliquis Stop heparin drip Moved to floor Supervisory-Addendum Brief Verification & Attestation Participated in pt care: history, MDM, physical Personally performed: exam, history, MDM, supervision of care Care discussed with: Medical Student Procedures: n/a Results interpretation: Verified all documentation Verification and Attestation of Medical Student E/M Service A medical student performed and documented this service in my presence. I reviewed and verified all information documented by the medical student and made modifications to such information, when appropriate. I personally performed the physical exam and medical decision making. Casie Harman, Sep 22, 2021,05:54 WING CHAVEZ Sep 21, 2021 10:47 CASIE HARMAN DO Sep 22, 2021 05:55
--- NOTE | 2021-09-21 12:05 | Occ Therapy Progress Note ---
Therapy Progress Note OT orders received and chart reviewed. OT talked with pt who states she is at her baseline with ADLs, and doesn't required OT services at this time. Pt able to don/doff R boot independently, eat independently, and doesn't foresee any issues with dressing/showering. Pt has a shower chair at home, and has her /kids to assist with household tasks as needed. OT educated pt on energy conservation techniques, she verbalized understanding. Pt's main concern is faith igating steps inside her home, she has discussed this with PT. No skilled OT services indicated at this time, as pt is independent with ADLs and at OF. D/C from OT. JOSE ALBERTO RUFFIN OT Sep 21, 2021 12:05
--- NOTE | 2021-09-21 12:22 | Tele-ICU Progress Note ---
Subjective Date Seen by a Provider: Sep 21, 2021 Time Seen by a Provider: 10:03 Sepsis Event Evaluation Height, Weight, BMI Height: 5'10.00" Weight: 180lbs. 0.0oz. 81.029642pg; 44.46 BMI Method: Exam Exam Patient acknowledged, consented, and participated in this virtual visit which was conducted using real time audio/video Vital Signs Date Time Temp Pulse Resp B/P (MAP) Pulse Ox O2 Delivery O2 Flow Rate FiO2 09/21/21 10:06 96 Nasal Cannula 0.50 09/21/21 10:00 94 121/81 96 Nasal Cannula 1.00 09/21/21 09:00 105 15 127/89 96 Nasal Cannula 1.00 09/21/21 08:00 92 13 113/80 98 Nasal Cannula 1.00 09/21/21 08:00 36.5 09/21/21 07:00 82 13 101/75 96 Nasal Cannula 1.00 09/21/21 07:00 88 09/21/21 06:00 83 17 93/72 96 Nasal Cannula 1.00 09/21/21 05:00 93 14 85/68 95 Nasal Cannula 1.00 09/21/21 04:00 81 12 91/65 97 Nasal Cannula 1.00 09/21/21 04:00 96 Nasal Cannula 1.00 09/21/21 03:00 86 15 88/63 96 Nasal Cannula 1.00 09/21/21 02:51 36.2 Nasal Cannula 1.00 09/21/21 02:00 93 15 88/61 95 Nasal Cannula 1.00 09/21/21 01:00 90 15 88/67 95 Nasal Cannula 1.00 09/21/21 01:00 90 09/21/21 00:00 98 18 101/71 96 Nasal Cannula 1.00 09/20/21 23:25 36.5 Nasal Cannula 1.00 09/20/21 23:24 96 Nasal Cannula 1.00 09/20/21 23:17 102 18 108/74 96 Nasal Cannula 1.00 09/20/21 22:00 105 17 117/69 99 Nasal Cannula 1.00 09/20/21 21:08 97 Nasal Cannula 0.50 09/20/21 21:00 101 16 126/88 98 Nasal Cannula 1.00 09/20/21 20:39 36.3 09/20/21 20:00 98 16 131/96 98 Nasal Cannula 1.00 09/20/21 20:00 97 Nasal Cannula 1.00 09/20/21 19:27 118 30 133/89 96 Nasal Cannula 1.00 09/20/21 19:00 Nasal Cannula 1.00 09/20/21 19:00 124 09/20/21 19:00 124 16 99 Nasal Cannula 1.00 09/20/21 18:00 101 10 114/94 99 Nasal Cannula 1.00 09/20/21 17:00 104 18 120/81 100 Nasal Cannula 1.00 09/20/21 16:00 36.1 09/20/21 16:00 96 Nasal Cannula 1.00 09/20/21 16:00 100 27 112/77 98 Nasal Cannula 1.00 09/20/21 15:00 106 15 118/83 98 Nasal Cannula 1.00 09/20/21 14:00 121 30 111/105 99 Nasal Cannula 1.00 09/20/21 13:29 111 09/20/21 13:00 102 16 125/82 97 Nasal Cannula 1.00 I & O 09/21/21 07:00 Intake Total 5100 ml Output Total 4450 ml Balance 650 ml Height & Weight Height: 5'10.00" Weight: 180lbs. 0.0oz. 81.370223ul; 44.46 BMI Method: General Appearance: WD/WN, Anxious, Mild Distress HEENT: PERRL/EOMI, Normal ENT Inspection, Pharynx Normal Neck: Full Range of Motion, Normal Inspection, Non Tender, Supple, Carotid Bruit Respiratory: Chest Non Tender, Lungs Clear, Normal Breath Sounds, No Accessory Muscle Use, No Respiratory Distress Cardiovascular: Regular Rate, Rhythm, No Edema, No Gallop, No JVD, No Murmur, Normal Peripheral Pulses Capillary Refill: Less Than 3 Seconds Extremity: Normal Capillary Refill, Normal Inspection, Normal Range of Motion, Non Tender, No Calf Tenderness, Calf Tenderness (mild right calf tenderness to palpation) Neurologic/Psychiatric: Alert, Oriented x3, No Motor/Sensory Deficits, Normal Mood/Affect, 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-XII Norm as Tested Skin: Normal Color, Warm/Dry Lymphatic: No Adenopathy Results Lab Laboratory Tests 09/19/21 13:40 09/20/21 04:30 09/21/21 05:10 Assessment/Plan Assessment/Plan (Tele-ICU Physician , Progress Note ) Available chart/ vitals / labs / Images reviewed Video assessment done using teleICU camera, rest of exam as per RN Discussed with RN , EXAM PER RN Events overnight : Afebrile FiO2 - 1L I/O = neg 500 Drips: hep ggt Pressors: , hemodynamically stable Consultants: toña Hospital course: (09/19) 36y F S/P recent ankle surgery and plating --> SADDLE PE A/P Saddle PE with RIGHT occlusive DVT and right heart strain -- as per cards/ PCP decided against tPA -cont heparin gtt for now --> NOAC - follow closely Lines : periph (Central Line Necessity Reviewed) Medrano: OG: Nutrition: Analgesia: Anxiety/ delirium Stress Ulcer Prophylaxis: na Plans in collaboration with bedside consultants and IM MDs. Discussed with RN to reach out if any questions or concerns A total of 31 minutes of critical care time was devoted to this patient today, required to treat and/or prevent further deterioration of critical care condition ( as above) . LEOBARDO ARENAS MD Sep 21, 2021 12:22
--- NOTE | 2021-09-21 12:46 | Physical Therapy Evaluation ---
PT Evaluation-General Medical Diagnosis Admission Date Sep 19, 2021 at 17:38 Medical Diagnosis: SVT Onset Date: Sep 19, 2021 Therapy Diagnosis Therapy Diagnosis: Gait deficit, strength deficit, Right ankle fracture with ORIF 09-14-21 Height/Weight Height (Feet): 5 Height (Inches): 10.00 Weight (Pounds): 180 Weight (Ounces): 0.0 Precautions Precautions/Isolations: Fall Prevention, Standard Precautions Weight Bear Status Right Lower Extremity: Right Touch Toe Bearing Left Lower Extremity: Left Full Weight Bearing Referral Physician: Dr. Harman Reason for Referral: Evaluation/Treatment Medical History Reviewed History: Yes Social History Home: Multilevel Current Living Status: Spouse Entry Into Home: Stairs With Railing PT Steps Into Home: 2 PT Steps Inside Home: 10 Patient reports her house has 3 main levels, but those levels each have levels of their own and in all the house has about 9 total levels with 5-10 steps to each. Prior Prior Level of Function SCALE: Activities may be completed with or without assistive devices. 5-Odfpyfezrn-xmcedol completes the activity by him/herself with no assistance from a helper. 5-Set-up or Clean-up Assistance-helper sets up or cleans up; patient completes activity. [place] assists only prior to or following the activity. 4-Supervision or Touching Assistance-helper provides verbal cues and/or touching/steadying and/or contact guard assistance as patient completes activity. Assistance may be provided throughout the activity or intermittently. 3-Partial/Moderate Assistance-helper does LESS THAN HALF the effort. [place] lifts, holds or supports trunk or limbs, but provides less than half the effort. 2-Substantial/Maximal Assistance-helper does MORE THAN HALF the effort. [place] lifts or holds trunk or limbs and provides more than half the effort. 5-Jeehwcusi-ddkwwq does ALL the effort. Patient does none of the effort to complete the activity. Or, the assistance of 2 or more helpers is required for the patient to complete the activity. If activity was not attempted, code reason: 7-Patient Refused. 9-Not Applicable-not attempted and the patient did not perform the activity before the current illness, exacerbation or injury. 10-Not Attempted due to Environmental Limitations-(lack of equipment, weather restraints, etc.). 88-Not Attempted due to Medical Conditions or Safety Concerns. Bed Mobility: 6 Transfers (B,C,W/C): 6 Gait: 6 Stairs: 6 Indoor Mobility (Ambulation): Independent Stairs: Independent Prior Devices Use: None PT Evaluation-Current Subjective Patient lying supine in bed upon PT arrival, agreeable to treatment. Patient reports 0/10 pain currently. Objective Patient Orientation: Person, Place, Time, Situation Attachments: [place] Catheter, IV ROM/Strength ROM Lower Extremities Right ankle N/A due to recent surgery. All other ROMs WFLs bilaterally Strength Lower Extremities Right ankle N/A due to recent surgery. All other planes 4/5 bilaterally Neuromuscular (Tone, Coordination, Reflexes) Intact Sensory Vision: Functional Hearing: Functional Sensation Right Lower Extremit: Intact Sensation Left Lower Extremity: Intact Transfers Roll Left to Right (QC): 4 Sit to Lying (QC): 4 Lying to Sitting/Side of Bed(Q: 4 Sit to Stand (QC): 3 Chair/Dhn-fj-Vevvt Xfer(QC): 3 Gait Does the Patient Walk?: Yes Mode of Locomotion: Walk Anticipated Mode of Locomotion: Walk Walk 10 feet (QC): 4 Walk 50 ft with 2 Turns(QC): 4 Distance: 60 Gait Assistive Device: FWW Balance Sitting Static: Normal Sitting Dynamic: Normal Standing Static: Good Standing Dynamic: Good Assessment/Needs Patient lying supine in bed upon PT arrival, agreeable to treatment. Patient CAM boot donned prior to bed mobility. Patient performs all observed bed mobility with SBA and all transfers with min A. Patient ambulates 60 feet with FWW, with CGA and verbal cues for TTWB RLE, posture, conservation of energy. Patient appears to place too much weight through her right LE initially, however after taking a few steps appears to be able to maintain TTWB. Patient in chair post treatment with all needs met, nursing notified, call light in reach. Rehab Potential: Good Equipment Needs FWW PT Skilled Nursing Goals Computer Engineering Technologist Goals PT Skilled Nursing Goals Time Frame: Oct 04, 2021 Roll Left & Right (QC): 6 Sit to Lying (QC): 6 Lying-Sitting on Side/Bed(QC): 6 Sit to Stand (QC): 6 Chair/Tlg-be-Qalsw Xfer(QC): 6 Toilet Transfer (QC): 6 Does the Patient Walk: Yes Walk 10 feet (QC): 5 Walk 50ft with 2 Turns (QC): 5 Walk 150 ft (QC): 5 1 Step (curb) (QC): 4 4 Steps (QC): 4 12 Steps (QC): 4 PT Plan Problem List Problem List: Activity Tolerance, Functional Strength, Safety, Balance, Gait, Transfer, Bed Mobility, ROM Treatment/Plan Treatment Plan: Continue Plan of Care Treatment Plan: Bed Mobility, Education, Functional Activity Suzette, Functional Strength, Group Therapy, Gait, Safety, Therapeutic Exercise, Transfers Treatment Duration: Nov 04, 2021 Frequency: 6 times per week Estimated Hrs Per Day: .25 hour per day Patient and/or Family Agrees t: Yes Safety Risks/Education Patient Education: Gait Training, Transfer Techniques, Reviewed Precautions, Safety Issues Teaching Recipient: Patient Teaching Methods: Demonstration, Discussion Response to Teaching: Verbalize Understanding, Return Demonstration Discharge Recommendations Target Placement Home post Acute stay Time/GCodes Time In: 1104 Time Out: 1140 Total Billed Treatment Time: 36 Total Billed Treatment Visit, Ailyn JAEGER JOHN A PT Sep 21, 2021 12:46
[2021-09-21] MEDS ORDERED: LORATADINE (CLARITIN) 10 MG TAB PO SCH (21:00)
[2021-09-21 23:51] VITALS: BP 124/80
[2021-09-22 05:13] LABS: BASOPHILS % (AUTO) 0 % (0-10); EOSINOPHILS # (AUTO) 0.2 10^3/uL (0.0-0.3); EOSINOPHILS % (AUTO) 2 % (0-10); HEMATOCRIT 38 % (35-52); HEMOGLOBIN 12.6 g/dL (11.5-16.0); LYMPHOCYTES # (AUTO) 2.3 10^3/uL (1.0-4.0); LYMPHOCYTES % (AUTO) 25 % (12-44); MEAN CORPUSCULAR HEMOGLOBIN 31 pg (25-34); MEAN CORPUSCULAR HGB CONC 33 g/dL (32-36); MEAN CORPUSCULAR VOLUME 93 fL (80-99); MEAN PLATELET VOLUME 10.4 fL (9.0-12.2); MONOCYTES # (AUTO) 0.7 10^3/uL (0.0-1.0); MONOCYTES % (AUTO) 7 % (0-12); NEUTROPHILS # (AUTO) 6.2 10^3/uL (1.8-7.8); NEUTROPHILS % (AUTO) 66 % (42-75); PLATELET COUNT 329 10^3/uL (130-400); WHITE BLOOD COUNT 9.4 10^3/uL (4.3-11.0)
[2021-09-22 05:35] LABS: ALBUMIN 3.7 GM/DL (3.2-4.5)
[2021-09-22 05:36] LABS: POTASSIUM 4.1 MMOL/L (3.6-5.0)
[2021-09-22 05:37] LABS: CALCIUM 9.2 MG/DL (8.5-10.1)
[2021-09-22 05:38] LABS: TOTAL PROTEIN 6.8 GM/DL (6.4-8.2)
[2021-09-22 05:40] LABS: BILIRUBIN,TOTAL 0.4 MG/DL (0.1-1.0)
[2021-09-22 05:41] LABS: CREATININE SERUM 0.82 MG/DL (0.60-1.30)
[2021-09-22] MEDS: APIXABAN 5 MG (ELIQUIS) TABLET PO SCH (08:05)
[2021-09-22] MEDS: ACETAMINOPHEN 325 MG TABLET PO PRN (08:06)
[2021-09-22] MEDS ORDERED: SPIRONOLACTONE 100 MG (ALDACTONE) TABLET PO SCH (09:00)
[2021-09-22] MEDS: DOCUSATE SODIUM 100 MG (COLACE) CAP PO SCH (09:00)
[2021-09-22] MEDS ORDERED: MULTIVIT W/MINERALS TAB (THERAGRAN M) PO SCH (09:00)
[2021-09-22] MEDS: SENNOSIDES 8.6 MG (SENOKOT) TAB PO SCH (09:00)
--- NOTE | 2021-09-22 10:00 | Cardiology Progress Note ---
Progress Note-Cardiology Events since last exam Date Seen by Provider: Sep 22, 2021 Time Seen by Provider: 09:59 Events since last exam I am following her due to right heart strain following a massive bilateral p ulmonary embolism and saddle pulmonary embolism. Her breathing is markedly improved. She denies chest pain. She still has some mild lower extremity edema, predominantly in the right leg. She denies palpitations or syncope. Certain portions of this document may have been dictated utilizing voice recognition technology. Inherent to this technology, typographical and grammatical errors may exist. As much as I am diligent to identify and correct these mistakes, some errors may remain in the document. Vitals Last set of Vitals Signs Vital Signs 09/21/21 09/21/21 09/22/21 16:00 23:51 11:51 Temp 36.3 Pulse 102 Resp 18 B/P (MAP) 157/90 Pulse Ox 97 O2 Delivery Room Air O2 Flow Rate 1.00 FiO2 21 Labs Labs Laboratory Tests 09/22/21 05:00 Exam Vital Signs Vital Signs Date Time Temp Pulse Resp B/P (MAP) Pulse Ox O2 Delivery O2 Flow Rate FiO2 09/22/21 11:51 36.3 102 18 157/90 97 Room Air 09/21/21 23:51 21 09/21/21 16:00 1.00 Physical Exam General: Alert. No acute distress. She is obese. Eye: No xanthelasma. HENT: Normocephalic. Neck: Jugular venous pressure does not appear elevated. Respiratory: Lungs are clear to auscultation. Respirations are non-labored. Breath sounds are equal. Symmetrical chest wall expansion. Cardiovascular: Normal rate. Regular rhythm. No murmur. No gallop. No edema of left lower extremity. Right foot and calf are in a boot. Gastrointestinal: Soft. Normal bowel sounds. Skin: Warm. Dry. Neurologic: Alert and oriented to person, place, time. Cranial nerves 3-11 grossly intact. Psychiatric: Cooperative. Appropriate mood & affect. Labs Laboratory Tests Test 09/22/21 05:00 Range/Units White Blood Count 9.4 4.3-11.0 10^3/uL Red Blood Count 4.10 3.80-5.11 10^6/uL Hemoglobin 12.6 11.5-16.0 g/dL Hematocrit 38 35-52 % Mean Corpuscular Volume 93 80-99 fL Mean Corpuscular Hemoglobin 31 25-34 pg Mean Corpuscular Hemoglobin Concent 33 32-36 g/dL Red Cell Distribution Width 12.5 10.0-14.5 % Platelet Count 329 130-400 10^3/uL Mean Platelet Volume 10.4 9.0-12.2 fL Immature Granulocyte % (Auto) 0 % Neutrophils (%) (Auto) 66 42-75 % Lymphocytes (%) (Auto) 25 12-44 % Monocytes (%) (Auto) 7 0-12 % Eosinophils (%) (Auto) 2 0-10 % Basophils (%) (Auto) 0 0-10 % Neutrophils # (Auto) 6.2 1.8-7.8 10^3/uL Lymphocytes # (Auto) 2.3 1.0-4.0 10^3/uL Monocytes # (Auto) 0.7 0.0-1.0 10^3/uL Eosinophils # (Auto) 0.2 0.0-0.3 10^3/uL Basophils # (Auto) 0.0 0.0-0.1 10^3/uL Immature Granulocyte # (Auto) 0.0 0.0-0.1 10^3/uL Sodium Level 136 135-145 MMOL/L Potassium Level 4.1 3.6-5.0 MMOL/L Chloride Level 106 98-107 MMOL/L Carbon Dioxide Level 18 L 21-32 MMOL/L Anion Gap 12 5-14 MMOL/L Blood Urea Nitrogen 10 7-18 MG/DL Creatinine 0.82 0.60-1.30 MG/DL Estimat Glomerular Filtration Rate 94 BUN/Creatinine Ratio 12 Glucose Level 100 70-105 MG/DL Calcium Level 9.2 8.5-10.1 MG/DL Corrected Calcium 9.4 8.5-10.1 MG/DL Total Bilirubin 0.4 0.1-1.0 MG/DL Aspartate Amino Transf (AST/SGOT) 27 5-34 U/L Alanine Aminotransferase (ALT/SGPT) 42 0-55 U/L Alkaline Phosphatase 79 40-136 U/L Total Protein 6.8 6.4-8.2 GM/DL Albumin 3.7 3.2-4.5 GM/DL Diagnosis/Problems Diagnosis/Problems (1) Right heart failure Status: Acute Assessment & Plan: She has evidence of right-sided chamber enlargement and right ventricular dysfunction on her echocardiogram from admission. This is most likely due to right heart strain from the pulmonary embolism. This should resolve spontaneously with treatment of the pulmonary embolism. I will plan on a follow-up echocardiogram a few months after discharge. (2) Pulmonary embolism Assessment & Plan: This was probably in some way related to her surgery on top of her increased risk due to morbid obesity. She has been transitioned to oral anticoagulants by the primary attending. She has been normotensive. I did not see any urgent indication for thrombolytics when she presented. (3) Lymphedema associated with obesity Assessment & Plan: This may have contributed to the increased risk of developing deep venous thrombosis following her ankle surgery. (4) Morbid obesity Status: Chronic Assessment & Plan: This has probably caused her chronic lymphedema. This could put her at risk of recurrent deep venous thrombosis. She needs to work on weight loss. Problem Qualifiers (1) Pulmonary embolism: Pulmonary embolism type: saddle Chronicity: acute Acute cor pulmonale presence: with acute cor pulmonale Qualified Codes: I26.02 - Saddle embolus of pulmonary artery with acute cor pulmonale DANIELA ALVAREZ JR, MD Sep 22, 2021 10:00
[2021-09-22] MEDS ORDERED: APIX5TAB PO (11:11)
--- NOTE | 2021-09-22 11:29 | Physical Therapy Daily Note ---
PT Daily Note-Current Subjective Patient lying supine in bed upon PT arrival, agreeable to treatment. Rates pain at 2/10 in right ankle. Reports she was in the chair most of the afternoon yesterday after PT. Mental Status Patient Orientation: Person, Place, Time, Situation Transfers SCALE: Activities may be completed with or without assistive devices. 7-Egicqgxozp-kanoiel completes the activity by him/herself with no assistance from a helper. 5-Set-up or Clean-up Assistance-helper sets up or cleans up; patient completes activity. [place] assists only prior to or following the activity. 4-Supervision or Touching Assistance-helper provides verbal cues and/or touching/steadying and/or contact guard assistance as patient completes activity. Assistance may be provided throughout the activity or intermittently. 3-Partial/Moderate Assistance-helper does LESS THAN HALF the effort. [place] lifts, holds or supports trunk or limbs, but provides less than half the effort. 2-Substantial/Maximal Assistance-helper does MORE THAN HALF the effort. [place] lifts or holds trunk or limbs and provides more than half the effort. 6-Wjaqljwks-ljcsbb does ALL the effort. Patient does none of the effort to complete the activity. Or, the assistance of 2 or more helpers is required for the patient to complete the activity. If activity was not attempted, code reason: 7-Patient Refused. 9-Not Applicable-not attempted and the patient did not perform the activity before the current illness, exacerbation or injury. 10-Not Attempted due to Environmental Limitations-(lack of equipment, weather restraints, etc.). 88-Not Attempted due to Medical Conditions or Safety Concerns. Roll Left & Right (QC): 6 Sit to Lying (QC): 6 Lying to Sitting/Side of Bed(Q: 6 Sit to Stand (QC): 4 Chair/Zco-cm-Czzmc Xfer(QC): 4 Weight Bearing Right Lower Extremity: Right Touch Toe Bearing Left Lower Extremity: Left Full Weight Bearing Gait Training Does the Patient Walk?: Yes Distance: 180 Walk 10 feet (QC): 4 Walk 50 ft with 2 Turns(QC): 4 Walk 150 ft (QC): 4 Gait Persons Needed: 1 Gait Assistive Device: FWW Exercises Seated Therapy Exercises: Ankle pumps, Long arc quads, Hip flexion, Hamstring Curls, Hip abd/add Seated Reps: 20 Ankle pumps left LE only Assessment Current Status: Good Progress Patient tolerated treatment well. Demonstrates improved bed mobility, transfers and gait distance. Patient performs all bed mobility with I and transfers with SBA. Patient ambulates 180 feet with FWW, with SBA and TTWB right LE. Patient does tend to place minimal weight through the right LE infrequently, but is able to correct with verbal cues. Patient in chair post treatment with all needs met, nursing notified, call light in reach. PT [place] Machine Operator Goals [place] Machine Operator Goals PT [place] Machine Operator Goals Time Frame: Oct 04, 2021 Roll Left & Right (QC): 6 Sit to Lying (QC): 6 Lying-Sitting on Side/Bed(QC): 6 Sit to Stand (QC): 6 Chair/Ewp-ro-Filyq Xfer(QC): 6 Toilet Transfer (QC): 6 Does the Patient Walk: Yes Walk 10 feet (QC): 5 Walk 50ft with 2 Turns (QC): 5 Walk 150 ft (QC): 5 1 Step (curb) (QC): 4 4 Steps (QC): 4 12 Steps (QC): 4 PT Plan Treatment/Plan Treatment Plan: Continue Plan of Care Treatment Plan: Bed Mobility, Education, Functional Activity Suzette, Functional Strength, Group Therapy, Gait, Safety, Therapeutic Exercise, Transfers Treatment Duration: Nov 04, 2021 Frequency: 6 times per week Estimated Hrs Per Day: .25 hour per day Patient and/or Family Agrees t: Yes Safety Risks/Education Patient Education: Gait Training, Transfer Techniques, Reviewed Precautions Teaching Recipient: Patient Teaching Methods: Demonstration, Discussion Response to Teaching: Verbalize Understanding, Return Demonstration Time/GCodes Time In: 844 Time Out: 910 Total Billed Treatment Time: 26 Total Billed Treatment Visit, Ailyn, PHIL Rodriguez PT Sep 22, 2021 11:29
--- NOTE | 2021-09-22 11:40 | Discharge Summary ---
Diagnosis/Chief Complaint Date of Admission Sep 19, 2021 at 17:38 Date of Discharge Discharge Date: Sep 22, 2021 Discharge Diagnosis Assessment: Acute hypoxic respiratory insufficiency Saddle pulmonary emboli Right lower extremity DVT Right ankle fracture status post repair Obesity Reason Hospital Visit CC: Massive saddle pulmonary embolism HPI: 36 yr old [facility] pt of mine for 18 years. She has no real past medical history. She presented to the ER with SOB. She had right ankle surgery after a fracture by Dr. Topete when she fell after she missed a step on her stairway. She had surgery to repair that but started having SOB on the day after Monday. So she only worsened as the days progressed and ultimately became so SOB during a shower yesterday that she presented to the walk-in clinic. She was told to go to the ER and found to have massive pulmonary embolism and the ultrasound today confirmed a right sided DVT. She has been placed on heparin drip. Dr. Hector consulted for right heart strain on echocardiogram. Discharge Summary Discharge Physical Examination Allergies: Coded Allergies: No Known Drug Allergies (Verified , 07/14/08) Vitals & I&Os Vital Signs Date Time Temp Pulse Resp B/P (MAP) Pulse Ox O2 Delivery O2 Flow Rate FiO2 09/22/21 14:50 Room Air 09/22/21 14:27 105 09/22/21 11:51 36.3 18 97 09/21/21 23:51 21 09/21/21 16:00 1.00 General Appearance: Alert, Oriented X3, Cooperative Respiratory: Clear to Auscultation Cardiovascular: Regular Rate Neuro: Normal Speech Hospital Course Was the Problem List Reviewed?: Yes HOSPITAL COURSE: Heike Ball is a 36yoF with no significant PMHx who presented on 09/19/21 with shortness of breath and fatigue s/p ankle surgery on 09/14/21. She states that she began feeling pain located in the posterior aspect of her right calf on 09/15/21; however, she believed this pain was secondary to surgery and thus did not seek medical treatment. Over the subsequent days, she began having difficulty catching her breath and became extremely short of breath after taking a sitting shower. On the day of admission, she took a seated shower and was unable to recover her breath and thus sought medical attention. She was sophiaa arnav in the ED. A CT angiogram of the chest was obtained and significant for a saddle pulmonary embolism with multiple emboli within all 5 lobes of the lung, along with right heart strain. She was immediately admitted to the ICU and a Heparin drip was initiated. A lower extremity ultrasound was ordered and found residual clot within the right lower extremity. She continued the Heparin drip in the ICU for 3 days. She was then transitioned to [facility] and transferred to the floor. Once on the floor, she was able to return to utilizing room air and maintaining her oxygen saturation as well as work with PT and OT. She will discharge on Eliquis for 3-6 months. No other changes were made to her home medications. She will follow up with her PCP in 1 week. She will need a follow- up echocardiogram on an outpatient basis. WING CHAVEZ Sep 22, 2021 12:18 Labs (last 24 hrs) Laboratory Tests 09/19/21 13:40: White Blood Count 11.1H, Red Blood Count 4.64, Hemoglobin 14.5, Hematocrit 44, Mean Corpuscular Volume 94, Mean Corpuscular Hemoglobin 31, Mean Corpuscular Hemoglobin Concent 33, Red Cell Distribution Width 12.5, Platelet Count 358, Mean Platelet Volume 10.3, Immature Granulocyte % (Auto) 1, Neutrophils (%) (Auto) 70, Lymphocytes (%) (Auto) 22, Monocytes (%) (Auto) 6, Eosinophils (%) (Auto) 1, Basophils (%) (Auto) 1, Neutrophils # (Auto) 7.8, Lymphocytes # (Auto) 2.5, Monocytes # (Auto) 0.6, Eosinophils # (Auto) 0.1, Basophils # (Auto) 0.1, Immature Granulocyte # (Auto) 0.1, Prothrombin Time 13.7, INR Comment 1.0, Activated Partial Thromboplast Time 36H, D-Dimer 8.26H, Sodium Level 137, Potassium Level 4.1, Chloride Level 104, Carbon Dioxide Level 19L, Anion Gap 14, Blood Urea Nitrogen 11, Creatinine 0.91, Estimat Glomerular Filtration Rate 83, BUN/Creatinine Ratio 12, Glucose Level 115H, Calcium Level 9.6, Corrected Calcium 9.5, Total Bilirubin 0.4, Aspartate Amino Transf (AST/SGOT) 36H, Alanine Aminotransferase (ALT/SGPT) 45, Alkaline Phosphatase 83, C-Reactive Protein High Sensitivity 3.51H, Total Protein 7.6, Albumin 4.1, Serum Test, Qualitative NEGATIVE 09/19/21 13:48: Influenza Type A (RT-PCR) Not Detected, Influenza Type B (RT-PCR) Not Detected, SARS-CoV-2 RNA (RT-PCR) Not Detected 09/19/21 23:07: Activated Partial Thromboplast Time 62H 09/20/21 04:30: White Blood Count 10.6, Red Blood Count 4.34, Hemoglobin 13.3, Hematocrit 41, Mean Corpuscular Volume 94, Mean Corpuscular Hemoglobin 31, Mean Corpuscular Hemoglobin Concent 33, Red Cell Distribution Width 12.4, Platelet Count 342, Mean Platelet Volume 10.6, Immature Granulocyte % (Auto) 1, Neutrophils (%) (Auto) 62, Lymphocytes (%) (Auto) 29, Monocytes (%) (Auto) 7, Eosinophils (%) (Auto) 1, Basophils (%) (Auto) 1, Neutrophils # (Auto) 6.6, Lymphocytes # (Auto) 3.1, Monocytes # (Auto) 0.7, Eosinophils # (Auto) 0.1, Basophils # (Auto) 0.1, Immature Granulocyte # (Auto) 0.1, Activated Partial Thromboplast Time 132*H, Sodium Level 138, Potassium Level 4.1, Chloride Level 107, Carbon Dioxide Level 20L, Anion Gap 11, Blood Urea Nitrogen 9, Creatinine 0.87, Estimat Glomerular Filtration Rate 88, BUN/Creatinine Ratio 10, Glucose Level 118H, Calcium Level 9.1, Corrected Calcium 9.3, Total Bilirubin 0.3, Aspartate Amino Transf (AST/SGOT) 31, Alanine Aminotransferase (ALT/SGPT) 43, Alkaline Phosphatase 72, Total Protein 6.7, Albumin 3.7, Phosphorus Level 3.5, Magnesium Level 1.8 09/20/21 10:48: Activated Partial Thromboplast Time 66H 09/20/21 14:31: Activated Partial Thromboplast Time 158*H 09/20/21 23:08: Activated Partial Thromboplast Time 49H 09/21/21 05:10: Activated Partial Thromboplast Time 89H, White Blood Count 9.3, Red Blood Count 4.28, Hemoglobin 13.2, Hematocrit 40, Mean Corpuscular Volume 94, Mean Corpuscular Hemoglobin 31, Mean Corpuscular Hemoglobin Concent 33, Red Cell Distribution Width 12.7, Platelet Count 328, Mean Platelet Volume 10.5, Immature Granulocyte % (Auto) 1, Neutrophils (%) (Auto) 61, Lymphocytes (%) (Auto) 30, Monocytes (%) (Auto) 7, Eosinophils (%) (Auto) 2, Basophils (%) (Auto) 0, Neutrophils # (Auto) 5.7, Lymphocytes # (Auto) 2.8, Monocytes # (Auto) 0.6, Eosinophils # (Auto) 0.2, Basophils # (Auto) 0.0, Immature Granulocyte # (Auto) 0.1, Sodium Level 137, Potassium Level 4.2, Chloride Level 107, Carbon Dioxide Level 19L, Anion Gap 11, Blood Urea Nitrogen 9, Creatinine 0.79, Estimat Glomerular Filtration Rate 99, BUN/Creatinine Ratio 11, Glucose Level 109H, Calcium Level 8.9, Corrected Calcium 9.2, Phosphorus Level 3.9, Magnesium Level 1.9, Total Bilirubin 0.5, Aspartate Amino Transf (AST/SGOT) 24, Alanine Aminotransferase (ALT/SGPT) 40, Alkaline Phosphatase 76, Total Protein 6.6, Albumin 3.6 09/22/21 05:00: White Blood Count 9.4, Red Blood Count 4.10, Hemoglobin 12.6, Hematocrit 38, Mean Corpuscular Volume 93, Mean Corpuscular Hemoglobin 31, Mean Corpuscular Hemoglobin Concent 33, Red Cell Distribution Width 12.5, Platelet Count 329, Mean Platelet Volume 10.4, Immature Granulocyte % (Auto) 0, Neutrophils (%) (Auto) 66, Lymphocytes (%) (Auto) 25, Monocytes (%) (Auto) 7, Eosinophils (%) (Auto) 2, Basophils (%) (Auto) 0, Neutrophils # (Auto) 6.2, Lymphocytes # (Auto) 2.3, Monocytes # (Auto) 0.7, Eosinophils # (Auto) 0.2, Basophils # (Auto) 0.0, Immature Granulocyte # (Auto) 0.0, Sodium Level 136, Potassium Level 4.1, Chlor xavier Level 106, Carbon Dioxide Level 18L, Anion Gap 12, Blood Urea Nitrogen 10, Creatinine 0.82, Estimat Glomerular Filtration Rate 94, BUN/Creatinine Ratio 12, Glucose Level 100, Calcium Level 9.2, Corrected Calcium 9.4, Total Bilirubin 0.4, Aspartate Amino Transf (AST/SGOT) 27, Alanine Aminotransferase (ALT/SGPT) 42, Alkaline Phosphatase 79, Total Protein 6.8, Albumin 3.7 Microbiology 09/19/21 MRSA Screen - Final, Complete MRSA not isolated Pending Labs Microbiology Date/Time Source Procedure Growth Status 09/19/21 21:00 Nasal MRSA Screen - Final MRSA not isolated Complete Laboratory Tests 09/19/21 13:40: White Blood Count 11.1, Red Blood Count 4.64, Hemoglobin 14.5, Hematocrit 44, Mean Corpuscular Volume 94, Mean Corpuscular Hemoglobin 31, Mean Corpuscular Hem oglobin Concent 33, Red Cell Distribution Width 12.5, Platelet Count 358, Mean Platelet Volume 10.3, Immature Granulocyte % (Auto) 1, Neutrophils (%) (Auto) 70, Lymphocytes (%) (Auto) 22, Monocytes (%) (Auto) 6, Eosinophils (%) (Auto) 1, Basophils (%) (Auto) 1, Neutrophils # (Auto) 7.8, Lymphocytes # (Auto) 2.5, Monocytes # (Auto) 0.6, Eosinophils # (Auto) 0.1, Basophils # (Auto) 0.1, Immature Granulocyte # (Auto) 0.1, Prothrombin Time 13.7, INR Comment 1.0, Activated Partial Thromboplast Time 36, D-Dimer 8.26, Sodium Level 137, Potassium Level 4.1, Chloride Level 104, Carbon Dioxide Level 19, Anion Gap 14, Blood Urea Nitrogen 11, Creatinine 0.91, Estimat Glomerular Filtration Rate 83, BUN/Creatinine Ratio 12, Glucose Level 115, Calcium Level 9.6, Corrected Calcium 9.5, Total Bilirubin 0.4, Aspartate Amino Transf (AST/SGOT) 36, Alanine Aminotransferase (ALT/SGPT) 45, Alkaline Phosphatase 83, C-Reactive Protein High Sensitivity 3.51, Total Protein 7.6, Albumin 4.1, Serum Test, Qualitative NEGATIVE 09/19/21 13:48: Influenza Type A (RT-PCR) Not Detected, Influenza Type B (RT-PCR) Not Detected, SARS-CoV-2 RNA (RT-PCR) Not Detected 09/19/21 23:07: Activated Partial Thromboplast Time 62 09/20/21 04:30: White Blood Count 10.6, Red Blood Count 4.34, Hemoglobin 13.3, Hematocrit 41, Mean Corpuscular Volume 94, Mean Corpuscular Hemoglobin 31, Mean Corpuscular Hemoglobin Concent 33, Red Cell Distribution Width 12.4, Platelet Count 342, Mean Platelet Volume 10.6, Immature Granulocyte % (Auto) 1, Neutrophils (%) (Auto) 62, Lymphocytes (%) (Auto) 29, Monocytes (%) (Auto) 7, Eosinophils (%) (Auto) 1, Basophils (%) (Auto) 1, Neutrophils # (Auto) 6.6, Lymphocytes # (Auto) 3.1, Monocytes # (Auto) 0.7, Eosinophils # (Auto) 0.1, Basophils # (Auto) 0.1, Immature Granulocyte # (Auto) 0.1, Activated Partial Thromboplast Time 132, Sodium Level 138, Potassium Level 4.1, Chloride Level 107, Carbon Dioxide Level 20, Anion Gap 11, Blood Urea Nitrogen 9, Creatinine 0.87, Estimat Glomerular Filtration Rate 88, BUN/Creatinine Ratio 10, Glucose Level 118, Calcium Level 9.1, Corrected Calcium 9.3, Total Bilirubin 0.3, Aspartate Amino Transf (AST/SGOT) 31, Alanine Aminotransferase (ALT/SGPT) 43, Alkaline Phosphatase 72, Total Protein 6.7, Albumin 3.7, Phosphorus Level 3.5, Magnesium Level 1.8 09/20/21 10:48: Activated Partial Thromboplast Time 66 09/20/21 14:31: Activated Partial Thromboplast Time 158 09/20/21 23:08: Activated Partial Thromboplast Time 49 09/21/21 05:10: Activated Partial Thromboplast Time 89, White Blood Count 9.3, Red Blood Count 4.28, Hemoglobin 13.2, Hematocrit 40, Mean Corpuscular Volume 94, Mean Corpuscular Hemoglobin 31, Mean Corpuscular Hemoglobin Concent 33, Red Cell Distribution Width 12.7, Platelet Count 328, Mean Platelet Volume 10.5, Immature Granulocyte % (Auto) 1, Neutrophils (%) (Auto) 61, Lymphocytes (%) (Auto) 30, Monocytes (%) (Auto) 7, Eosinophils (%) (Auto) 2, Basophils (%) (Auto) 0, Neutrophils # (Auto) 5.7, Lymphocytes # (Auto) 2.8, Monocytes # (Auto) 0.6, Eosinophils # (Auto) 0.2, Basophils # (Auto) 0.0, Immature Granulocyte # (Auto) 0.1, Sodium Level 137, Potassium Level 4.2, Chloride Level 107, Carbon Dioxide Level 19, Anion Gap 11, Blood Urea Nitrogen 9, Creatinine 0.79, Estimat Glomerular Filtration Rate 99, BUN/Creatinine Ratio 11, Glucose Level 109, Calcium Level 8.9, Corrected Calcium 9.2, Phosphorus Level 3.9, Magnesium Level 1.9, Total Bilirubin 0.5, Aspartate Amino Transf (AST/SGOT) 24, Alanine Aminotransferase (ALT/SGPT) 40, Alkaline Phosphatase 76, Total Protein 6.6, Albumin 3.6 09/22/21 05:00: White Blood Count 9.4, Red Blood Count 4.10, Hemoglobin 12.6, Hematocrit 38, Mean Corpuscular Volume 93, Mean Corpuscular Hemoglobin 31, Mean Corpuscular Hemoglobin Concent 33, Red Cell Distribution Width 12.5, Platelet Count 329, Mean Platelet Volume 10.4, Immature Granulocyte % (Auto) 0, Neutrophils (%) (Auto) 66, Lymphocytes (%) (Auto) 25, Monocytes (%) (Auto) 7, Eosinophils (%) (Auto) 2, Basophils (%) (Auto) 0, Neutrophils # (Auto) 6.2, Lymphocytes # (Auto) 2.3, Monocytes # (Auto) 0.7, Eosinophils # (Auto) 0.2, Basophils # (Auto) 0.0, Immature Granulocyte # (Auto) 0.0, Sodium Level 136, Potassium Level 4.1, Chloride Level 106, Carbon Dioxide Level 18, Anion Gap 12, Blood Urea Nitrogen 10, Creatinine 0.82, Estimat Glomerular Filtration Rate 94, BUN/Creatinine Ratio 12, Glucose Level 100, Calcium Level 9.2, Corrected Calcium 9.4, Total Bilirubin 0.4, Aspartate Amino Transf (AST/SGOT) 27, Alanine Aminotransferase (ALT/SGPT) 42, Alkaline Phosphatase 79, Total Protein 6.8, Albumin 3.7 Discharge Home Medications: Active Scripts Active Eliquis (Apixaban) 5 Mg Tablet 5 Mg PO BID 30 Days TAKE 2 TABLETS BID X 7 DAYS, THEN 1 TABLET BID Reported Centrum Women Tablet (Multivitamin/Iron/Folic Acid) 1 Each Tablet 1 Each PO DAILY Loratadine 10 Mg Tablet 10 Mg PO HS Dapsone 60 Gm Gel..gram. 1 Applic TOP UD PRN APPLIES SPOT TREATMENTS TO THE FACE Spironolactone 50 Mg Tablet 150 Mg PO DAILY TAKES 3 (50MG) TABS Oxycodone-Acetaminophen 5-325 (Oxycodone HCl/Acetaminophen) 1 Each Tablet 1 Ea PO Q4H PRN Instructions to patient/family Please see electronic discharge instructions given to patient. Clinical Quality Measures DVT/VTE Risk/Contraindication: Contraindications-Mechi: Other *list below* Other: dvt KATIA KOWALSKI DO Sep 22, 2021 11:40
--- NOTE | 2021-09-22 12:18 | Progress Note ---
WING CHAVEZ 09/22/21 1218: Progress Note HOSPITAL COURSE: Heike Ball is a 36yoF with no significant PMHx who presented on 09/19/21 with shortness of breath and fatigue s/p ankle surgery on 09/14/21. She states that she began feeling pain located in the posterior aspect of her right calf on 09/15/21; however, she believed this pain was secondary to surgery and thus did not seek medical treatment. Over the subsequent days, she began having difficulty catching her breath and became extremely short of breath after taking a sitting shower. On the day of admission, she took a seated shower and was unable to recover her breath and thus sought medical attention. She was evaluated in the ED. A CT angiogram of the chest was obtained and significant for a saddle pulmonary embolism with multiple emboli within all 5 lobes of the lung, along with right heart strain. She was immediately admitted to the ICU and a Heparin drip was initiated. A lower extremity ultrasound was ordered and found residual clot within the right lower extremity. She continued the Heparin drip in the ICU for 3 days. She was then transitioned to [facility] and transferred to the floor. Once on the floor, she was able to return to utilizing room air and maintaining her oxygen saturation as well as work with PT and OT. She will discharge on [facility] for 3-6 months. No other changes were made to her home medications. She will follow up with her PCP in 1 week. She will need a follow- up echocardiogram on an outpatient basis. CASIE HARMAN DO 09/23/21 0522: Supervisory-Addendum Brief Verification & Attestation Participated in pt care: history, MDM, physical Personally performed: exam, history, MDM, supervision of care Care discussed with: Medical Student Procedures: n/a Results interpretation: Verified all documentation Verification and Attestation of Medical Student E/M Service A medical student performed and documented this service in my presence. I reviewed and verified all information documented by the medical student and made modifications to such information, when appropriate. I personally performed the physical exam and medical decision making. Casie Harman, Sep 23, 2021,05:22 WING CHAVEZ Sep 22, 2021 12:18 CASIE HARMAN DO Sep 23, 2021 05:22
== END 2021-09-22 14:50 | disposition home or self-care (01) | DRG 175 ==
LOC: EDUNIT# 13:10 → ER 13:14 → ICU 17:38 → 4TH 09-21 16:29
PROVIDERS: ADMIT Internal Medicine; ATTEND Internal Medicine
DX: I26.02 Saddle embolus of pulmonary artery with acute cor pulmonale (principal); J96.01 Acute respiratory failure with hypoxia; I82.401 Acute embolism and thrombosis of unspecified deep veins of right lower extremity; Z68.42 Body mass index [BMI] 45.0-49.9, adult; Z20.822 Contact with and (suspected) exposure to COVID-19; Z79.82 Long term (current) use of aspirin; Z79.899 Other long term (current) drug therapy; E66.01 Morbid (severe) obesity due to excess calories; I50.9 Heart failure, unspecified; I89.0 Lymphedema, not elsewhere classified
CPT/HCPCS: 36410; 36415; 51702; 71275; 76937; 80053; 83735; 84100; 84703; 85025; 85379; 85610; 85730; 86141; 87081; 87636; 93005; 93306; 93970; 94640; 94664; 94760

== ENCOUNTER → 2022-04-25 | Outpatient (CLI) | payer BC ==
[~2022-04-25] MED LIST changes: +APIX5TAB PO; +ASPI325T32 PO; +DAPS60GE TOP; +IBUP-2473 PO; +LORA10TA7 PO; +MULT-1060 PO; +OXYC1TAB11 PO; +SPIR50TA4 PO
== END ==
LOC: CARD 09:00
PROVIDERS: ATTEND Internal Medicine
DX: I27.20 Pulmonary hypertension, unspecified (principal)
CPT/HCPCS: 93306